=== PATIENT | female | born 1980 | race Caucasian/White ===

== ENCOUNTER → 2018-01-28 | Outpatient (CLI) | payer OTHER ==
--- NOTE | 2018-01-28 18:20 | XR ---
EXAMINATION TYPE: XR cervical spine comp DATE OF EXAM: 01/28/2018 COMPARISON: NONE HISTORY: Neck pain TECHNIQUE: 7 views FINDINGS: Cervical vertebra have fairly normal spacing and alignment. Posterior elements are intact. Atlantoaxial facet joint is normal. There are no cervical ribs. IMPRESSION: Negative cervical spine exam.
--- NOTE | 2018-01-28 18:46 | CT ---
EXAMINATION TYPE: CT abdomen pelvis wo con DATE OF EXAM: 01/28/2018 COMPARISON: 01/04/2011 HISTORY: c/o low back and pelvic pain X [address] DLP: 1297.0 mGycm Automated exposure control for dose reduction was used. TECHNIQUE: Helical acquisition of images was performed from the lung bases through the pelvis. FINDINGS: The lung bases are clear. There is no pleural effusion. Heart size is normal. Liver spleen pancreas gallbladder appear normal. Bile ducts are not dilated. There is no adrenal mass. Kidneys have normal size and contour. There is no hydronephrosis. There is a 3 mm calcification in the lower pole right kidney. There is no hydronephrosis. There is no retroper itoneal adenopathy. There is no ascites. Bladder distends smoothly. The uterus is anteverted. I see n o bony destructive process. There is no evidence of a pelvic mass. I see no intestinal wall thickenin g. There are no dilated loops. Appendix appears normal. Fecal pattern is normal. IMPRESSION: NONOBSTRUCTING SMALL RIGHT RENAL CALCULUS. NO SIGN OF ACUTE ABDOMEN AND PELVIS. CALCIFICATION APPEARS NEW COMPARED TO OLD EXAM.
== END | disposition home or self-care (01) ==
LOC: RADCTMAIN 17:40
PROVIDERS: ATTEND Internal Medicine
DX: N20.0 Calculus of kidney (principal); M54.2 Cervicalgia; R10.2 Pelvic and perineal pain
CPT/HCPCS: 72050; 74176

== ENCOUNTER → 2018-02-02 | Outpatient (CLI) | payer OTHER ==
--- NOTE | 2018-02-02 16:52 | XR ---
EXAMINATION TYPE: XR thoracic spine 3 views, XR lumbosacral spine min 5 views DATE OF EXAM: 02/02/2018 COMPARISON: NONE HISTORY: 37-year-old female thoracic and lumbar pain, lumbago FINDINGS: Thoracic spine: 12 rib-bearing thoracic vertebral bodies. All pedicles are visualized. Very minimal leftward curvatur e along the upper thoracic spine. Mild endplate spondylosis mid to lower thoracic spine. Vertebral ann-marie dy heights are preserved and alignment is maintained. Lumbar spine: Slight leftward truncal shift 5 lumbar type vertebral bodies. 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 No pars interarticularis defect. Mild facet arthropathy l ower lumbar spine. There is mild disc interspace narrowing in the upper lumbar spine. Vertebral body heights are preserved and alignment is maintained. IMPRESSION: 1. Thoracic spine: Mild endplate spondylosis mid to lower thoracic spine. No vertebral compression co llapse or malalignment. 2. Lumbar spine: Facet arthropathy lower lumbar spine. Mild degenerative disc interspace narrowing up per lumbar spine. No vertebral compression collapse or malalignment. 3. Leftward truncal shift and slight leftward curvature along the upper thoracic spine could be posit ional, due to muscle spasm, or secondary to a very subtle scoliosis.
== END | disposition home or self-care (01) ==
LOC: RADXRMAIN 15:53
PROVIDERS: ATTEND Internal Medicine
DX: M48.061 Spinal stenosis, lumbar region without neurogenic claudication (principal); M46.96 Unspecified inflammatory spondylopathy, lumbar region; M47.814 Spondylosis without myelopathy or radiculopathy, thoracic region
CPT/HCPCS: 72070; 72110

== ENCOUNTER → 2018-02-19 | Outpatient (CLI) | payer OTHER ==
--- NOTE | 2018-02-19 23:16 | MR ---
EXAMINATION TYPE: MR lumbar spine wo con DATE OF EXAM: 02/19/2018 COMPARISON: Lumbar spine x-ray February 02, 2018. CT abdomen and pelvis January 28, 2018. HISTORY: Low back pain per order. Pain for 3 to 4 months per patient. TECHNIQUE: Multiplanar, multisequence imaging of the lumbar spine is performed without IV contrast. FINDINGS: Motion artifact is noted making evaluation slightly suboptimal. Sagittal images of the lumb ar spine show vertebral body heights and alignment to appear satisfactory. There is disc desiccation L3-L4 level otherwise the intervertebral discs demonstrate normal heights and hydration. No suspiciou s posterior disc herniations are seen on sagittal images. The conus medullaris is normal in position and signal ending at inferior L1 level. The bone marrow signal intensity is within normal limits. N o significant spurring is seen. Axial images show mild multilevel facet degenerative changes in the mid to lower lumbar spine most pr ominent L5-S1 level but the spinal canal is preserved and the bilateral neural foramina are patent at all lumbar levels. No suspicious retroperitoneal findings are seen. IMPRESSION: Multilevel facet arthropathy most prominent mid to lower lumbar levels.
== END | disposition home or self-care (01) ==
LOC: RADMRIMAIN 14:30
PROVIDERS: ATTEND Internal Medicine
DX: M46.96 Unspecified inflammatory spondylopathy, lumbar region (principal)
CPT/HCPCS: 72148

== ENCOUNTER 2018-06-20 21:42 | Emergency (ER) | payer OTHER ==
[2018-06-20 22:20] VITALS: RESP 18
[2018-06-20] MEDS ORDERED: CIPROFLOXACIN-DEXAMETH 0.3-0.1% DROPS 7.5 ML BTL RIGHT EAR STA (22:31)
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
[2018-06-21 00:52] VITALS: BP 128/77; PULSE 96; TEMP 98
== END 2018-06-20 22:45 | disposition home or self-care (01) ==
LOC: EC 21:42
DX: H60.91 Unspecified otitis externa, right ear (principal); R68.84 Jaw pain; F32.9 Major depressive disorder, single episode, unspecified; F41.9 Anxiety disorder, unspecified; Z79.899 Other long term (current) drug therapy; Z88.2 Allergy status to sulfonamides; Z91.018 Allergy to other foods
CPT/HCPCS: 99282

== ENCOUNTER 2018-08-02 20:28 | Emergency (ER) | payer OTHER ==
[2018-08-02] MEDS ORDERED: ALBUTEROL NEBULIZED 2.5 MG/3 ML INHALATION STA (21:09)
--- NOTE | 2018-08-02 21:20 | ED ---
URI HPI - General Chief Complaint: Upper Respiratory Infection Stated Complaint: congestion Time Seen by Provider: 08/02/18 20:51 Source: patient Mode of arrival: ambulatory Limitations: no limitations - History of Present Illness MD Complaint: cough, sore throat, nasal congestion -: days(s) Severity: moderate Quality: burning Consistency: constant Improves With: nothing Worsens With: other Associated Symptoms: nasal congestion, sore throat, cough Treatments Prior to Arrival: none - Related Data Home Medications Medication Instructions Recorded Confirmed D-Methorphan/PE/Acetaminophen 1 cap PO Q6HR PRN 08/02/18 08/02/18 [Vicks Dayquil Liquicaps] Previous Rx's Medication Instructions Recorded Albuterol Inhaler [Ventolin Hfa 1 - 2 puff INHALATION Q6HR PRN #1 08/02/18 Inhaler] inhaler Azithromycin [Zithromax Z-pack] 250 mg PO DIRECTED #6 tab 08/02/18 Benzonatate [Tessalon Perles] 100 mg PO TID PRN #24 capsule 08/02/18 predniSONE 20 mg PO BID #8 tab 08/02/18 Allergies Allergy/AdvReac Type Severity Reaction Status Date / Time Sulfa (Sulfonamide Allergy Rash/Hives Verified 08/02/18 20:41 Antibiotics) BANANAS Allergy THROAT Uncoded 08/02/18 20:31 SWELLS COCONUT Allergy THROAT Uncoded 08/02/18 20:31 SWELLS Review of Systems ROS Statement: Those systems with pertinent positive or pertinent negative responses have been documented in the HPI. ROS Other: All systems not noted in ROS Statement are negative. Constitutional: Reports: fever. Denies: chills ENT: Reports: throat pain, congestion Respiratory: Reports: cough. Denies: dyspnea, hemoptysis Cardiovascular: Reports: chest pain (Bilateral rib pain during coughing). Denies: palpitations, edema, syncope Gastrointestinal: Denies: abdominal pain, vomiting, diarrhea Musculoskeletal: Denies: back pain Skin: Denies: rash Neurological: Denies: headache, weakness, numbness, paresthesias Past Medical History Past Medical History: Pneumonia, Sleep Apnea/CPAP/BIPAP Additional Past Medical History / Comment(s): back pain, numbness & tingling, not using c-pap History of Any Multi-Drug Resistant Organisms: None Reported Past Surgical History: Orthopedic Surgery, Tubal Ligation Additional Past Surgical History / Comment(s): carpul tunnel surgery Past Anesthesia/Blood Transfusion Reactions: No Reported Reaction Past Psychological History: Anxiety, Depression Smoking Status: Never smoker Past Alcohol Use History: Occasional Past Drug Use History: None Reported General Exam Limitations: no limitations General appearance: alert, in no apparent distress, obese Head exam: Present: atraumatic, normocephalic Eye exam: Present: normal appearance. Absent: scleral icterus, conjunctival injection ENT exam: Present: normal oropharynx (Trace inflammation of the oropharynx. The uvula is midline with no edema.) Neck exam: Present: normal inspection, full ROM, lymphadenopathy. Absent: meningismus Respiratory exam: Present: wheezes. Absent: respiratory distress, rales, rhonchi, stridor Cardiovascular Exam: Present: regular rate, normal rhythm, normal heart sounds. Absent: systolic murmur, diastolic murmur, rubs, gallop GI/Abdominal exam: Present: soft. Absent: tenderness, guarding, rebound Extremities exam: Present: normal inspection Back exam: Present: normal inspection. Absent: CVA tenderness (R), CVA tenderness (L) Neurological exam: Present: alert Skin exam: Present: warm, dry, intact, normal color. Absent: rash Course Vital Signs 08/02/18 08/02/18 08/02/18 20:30 21:44 21:51 Temperature 98.6 F Pulse Rate 115 H 110 H 110 H Respiratory 18 Rate Blood Pressure 156/87 O2 Sat by Pulse 95 Oximetry Disposition Clinical Impression: Bronchitis Disposition: HOME SELF-CARE Condition: Good Instructions: Acute Bronchitis (ED) Prescriptions: Albuterol Inhaler [Ventolin Hfa Inhaler] 1 - 2 puff INHALATION Q6HR PRN #1 inhaler PRN Reason: Wheezing Azithromycin [Zithromax Z-pack] 250 mg PO DIRECTED #6 tab Benzonatate [Tessalon Perles] 100 mg PO TID PRN #24 capsule PRN Reason: Cough predniSONE 20 mg PO BID #8 tab Is patient prescribed a controlled substance at d/c from ED?: No Referrals: Violet Stevenson MD [Primary Care Provider] - 1-2 days
--- NOTE | 2018-08-02 22:22 | XR ---
EXAMINATION TYPE: XR chest 2V DATE OF EXAM: 08/02/2018 COMPARISON: 08/28/2017 HISTORY: Cough and congestion TECHNIQUE: Frontal and lateral views of the chest are obtained. FINDINGS: Heart and mediastinum are normal. There is some linear density in the lingula consistent w ith subsegmental atelectasis. Costophrenic angles are clear. There are no hilar masses. Bony thorax i s intact. IMPRESSION: New subsegmental atelectasis compared to old exam. Normal heart.
[2018-08-02 22:36] VITALS: BP 123/87; PULSE 111; RESP 20; TEMP 99
== END 2018-08-02 22:43 | disposition home or self-care (01) ==
LOC: EC 20:28
DX: J40 Bronchitis, not specified as acute or chronic (principal); G47.30 Sleep apnea, unspecified; Z91.018 Allergy to other foods; Z88.2 Allergy status to sulfonamides; Z87.01 Personal history of pneumonia (recurrent)
CPT/HCPCS: 71046; 94640; 99283

== ENCOUNTER → 2018-08-15 | Outpatient (CLI) | payer OTHER ==
[2018-08-15 09:24] LABS: Basophils # (A) 0.1 k/uL (0-0.2); Basophils % (A) 1 %; Eosinophils # (A) 0.5 k/uL (0-0.7); Eosinophils % (A) 5 %; HCT 41.8 % (34.0-46.0); HGB 13.7 gm/dL (11.4-16.0); Lymphocytes # (A) 2.7 k/uL (1.0-4.8); Lymphocytes % (A) 29 %; MCH 28.4 pg (25.0-35.0); MCHC 32.8 g/dL (31.0-37.0); MCV 86.7 fL (80.0-100.0); Mean Platelet Volume 9.3; Monocytes # (A) 0.4 k/uL (0-1.0); Monocytes % (A) 4 %; Neutrophils # (A) 5.7 k/uL (1.3-7.7); Neutrophils % (A) 60 %; Platelet Count 204 k/uL (150-450); RBC 4.82 m/uL (3.80-5.40); RDW 13.1 % (11.5-15.5); WBC 9.4 k/uL (3.8-10.6)
[2018-08-15 09:39] LABS: ALT 32 U/L (9-52); AST 23 U/L (14-36); Albumin 3.9 g/dL (3.5-5.0); Alkaline Phosphatase 91 U/L (38-126); Anion Gap 11 mmol/L; Blood Urea Nitrogen 12 mg/dL (7-17); Calcium 9.3 mg/dL (8.4-10.2); Carbon Dioxide 23 mmol/L (22-30); Chloride 105 mmol/L (98-107); Glucose 218 mg/dL (74-99); Potassium 4.5 mmol/L (3.5-5.1); Sodium 139 mmol/L (137-145); Total Bilirubin 0.3 mg/dL (0.2-1.3)
[2018-08-15 09:56] LABS: T4, Free (Free Thyroxine) 0.92 ng/dL (0.78-2.19)
[2018-08-15 17:34] LABS: Iron Saturation 20.78 (12.00-45.00)
[2018-08-15 17:54] LABS: Vitamin D 25 Hydroxy 14.3 ng/mL (30.0-100.0)
== END ==
LOC: LABWHC1 08:56
PROVIDERS: ATTEND Nurse Practitioner Acute Care
DX: E55.9 Vitamin D deficiency, unspecified (principal); D64.9 Anemia, unspecified; M62.838 Other muscle spasm; R53.83 Other fatigue
CPT/HCPCS: 36415; 80053; 82306; 82607; 83540; 83550; 84207; 84439; 84443; 84481; 85025; 86038

== ENCOUNTER 2019-04-13 18:16 | Emergency (ER) | payer BC, OTHER ==
[2019-04-13 18:20] VITALS: TEMP 98.4
[2019-04-13] MEDS ORDERED: IBUPROFEN 600 MG TAB PO STA (19:23)
--- NOTE | 2019-04-13 19:24 | ED ---
General Adult HPI - General Chief complaint: Extremity Problem,Nontraumatic Stated complaint: Knee pain Time Seen by Provider: 04/13/19 18:58 Source: patient, RN notes reviewed Mode of arrival: ambulatory Limitations: no limitations - History of Present Illness Initial comments: 38-year-old female presents to the emergency department for a chief complaint of right knee pain. States she has had right knee pain for the past 3 days. States the pain shoots up to her hip and down to her foot. Denies any calf pain. Denies any injuries. No fevers or chills. States it does hurt to bend it. States she is able to ambulate but it is somewhat painful. States she has a history of back pain and neuropathy but has not had any issues. Patient did try Aleve last night which only helped minimally.Patient has no other complaints at this time including shortness of breath, chest pain, abdominal pain, nausea or vomiting, headache, or visual changes. - Related Data Home Medications Medication Instructions Recorded Confirmed D-Methorphan/PE/Acetaminophen 1 cap PO Q6HR PRN 08/02/18 08/02/18 [Vicks Dayquil Liquicaps] Previous Rx's Medication Instructions Recorded Albuterol Inhaler [Ventolin Hfa 1 - 2 puff INHALATION Q6HR PRN #1 08/02/18 Inhaler] inhaler Azithromycin [Zithromax Z-pack] 250 mg PO DIRECTED #6 tab 08/02/18 Benzonatate [Tessalon Perles] 100 mg PO TID PRN #24 capsule 08/02/18 predniSONE 20 mg PO BID #8 tab 08/02/18 Allergies Allergy/AdvReac Type Severity Reaction Status Date / Time Sulfa (Sulfonamide Allergy Rash/Hives Verified 04/13/19 18:20 Antibiotics) BANANAS Allergy THROAT Uncoded 04/13/19 18:20 SWELLS COCONUT Allergy THROAT Uncoded 04/13/19 18:20 MIT[place]HEL Review of Systems ROS Statement: Those systems with pertinent positive or pertinent negative responses have been documented in the HPI. ROS Other: All systems not noted in ROS Statement are negative. Past Medical History Past Medical History: Pneumonia, Sleep Apnea/CPAP/BIPAP Additional Past Medical History / Comment(s): back pain, numbness & tingling, not using c-pap History of Any Multi-Drug Resistant Organisms: None Reported Past Surgical History: Orthopedic Surgery, Tubal Ligation Additional Past Surgical History / Comment(s): carpul tunnel surgery Past Anesthesia/Blood Transfusion Reactions: No Reported Reaction Past Psychological History: Anxiety, Depression Smoking Status: Never smoker Past Alcohol Use History: Occasional Past Drug Use History: None Reported General Exam Limitations: no limitations General appearance: alert, in no apparent distress Head exam: Present: atraumatic, normocephalic, normal inspection Eye exam: Present: normal appearance, PERRL, EOMI. Absent: scleral icterus, conjunctival injection, periorbital swelling ENT exam: Present: normal exam, mucous membranes moist Neck exam: Present: normal inspection, full ROM. Absent: tenderness, meningismus Respiratory exam: Present: normal lung sounds bilaterally. Absent: respiratory distress, wheezes, rales, rhonchi, stridor Cardiovascular Exam: Present: regular rate, normal rhythm, normal heart sounds. Absent: systolic murmur, diastolic murmur, rubs, gallop, clicks Extremities exam: Present: tenderness (Minimal anterior knee tenderness, no posterior knee tenderness or calf tenderness.), normal capillary refill (Capillary refill less than 2 seconds, DP pulse 2+ in the right lower extremity and equal bilaterally.), other (Sensation intact in the right lower extremity.). Absent: full ROM (Patient has about 90 flexion, full extension.), pedal edema, joint swelling (No significant or appreciable edema or erythema noted of the right knee, no evidence of infection.), calf tenderness (Negative Homans sign.) Course Vital Signs 04/13/19 18:18 Temperature 98.4 F Pulse Rate 94 Respiratory 18 Rate Blood Pressure 128/82 O2 Sat by Pulse 95 Oximetry Medical Decision Making - Medical Decision Making 38-year-old obese female presents for right knee pain 3 days. Denies injury. Patient is able to flex knee to 90 her no erythema or edema. No evidence for infection. Patient is ambulatory on the knee without difficulty. Neurovascular status is intact.Ultrasound of the right leg shows no evidence of DVT. X-ray shows a small joint effusion, no fracture. At this time I do not see any emergent causes of knee pain. Could be arthritic in nature. Patient given Jeremias wrap. Recommended follow-up with orthopedics. Recommended returning here if she has any worsening symptoms such as increased pain, fever, or redness of the knee. Disposition Clinical Impression: Knee pain, right, Joint effusion Disposition: HOME SELF-CARE Condition: Good Instructions (If sedation given, give patient instructions): Knee Pain (ED) Additional Instructions: Please take Motrin and Tylenol for pain. Please use Jeremias wrap while awake. Please follow-up with orthopedics in one to 2 days. Return if you have any worsening symptoms or develop any fevers. Is patient prescribed a controlled substance at d/c from ED?: No Referrals: Violet Stevenson MD [Primary Care Provider] - 1-2 days Efren Mike DO [Medical Doctor] - 1-2 days Time of Disposition: 20:59
--- NOTE | 2019-04-13 19:47 | XR ---
EXAMINATION TYPE: XR knee complete RT DATE OF EXAM: 04/13/2019 COMPARISON: NONE HISTORY: Knee pain TECHNIQUE: 3 views FINDINGS: There is small knee joint effusion. I see no fracture nor dislocation. Joint spaces are pro rly normal. IMPRESSION: Small joint effusion. No fracture.
--- NOTE | 2019-04-13 20:02 | US ---
EXAMINATION TYPE: US venous doppler duplex LE RT DATE OF EXAM: 04/13/2019 7:57 PM COMPARISON: NONE CLINICAL HISTORY: Pain. Right leg pain SIDE PERFORMED: Right TECHNIQUE: The lower extremity deep venous system is examined utilizing real time linear array sonog nathalie with graded compression, doppler sonography and color-flow sonography. VESSELS IMAGED: External Iliac Vein (EIV) Common Femoral Vein Deep Femoral Vein Greater Saphenous Vein * Femoral Vein Popliteal Vein Small Saphenous Vein * Proximal Calf Veins (* superficial vessels) Right Leg: Negative for DVT No evidence of DVT right leg. IMPRESSION: No evidence of deep venous thrombosis in the right leg.
[2019-04-13 21:08] VITALS: BP 148/98; PULSE 70; RESP 16
== END 2019-04-13 21:07 | disposition home or self-care (01) ==
LOC: EC 18:16
DX: M25.461 Effusion, right knee (principal); Z88.2 Allergy status to sulfonamides; Z91.018 Allergy to other foods
CPT/HCPCS: 99284

== ENCOUNTER 2019-08-07 20:26 | Emergency (ER) | payer BC, OTHER ==
[2019-08-07 20:31] VITALS: TEMP 98.1
[2019-08-07] MEDS ORDERED: DIPH,PERTUS(ACELL)TETVAC-LF 0.5 ML VIAL IM ONE (20:48)
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
[2019-08-07] MEDS ORDERED: AMOXIC-POT CLAV 875MG STARTER 2 EACH TABLET PO STA (21:31)
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
[2019-08-07 21:37] VITALS: BP 154/90; PULSE 80; RESP 18
== END 2019-08-07 21:38 | disposition home or self-care (01) ==
LOC: EC 20:26
DX: S01.21XA Laceration without foreign body of nose, initial encounter (principal); Z88.2 Allergy status to sulfonamides; Z91.018 Allergy to other foods; Z23 Encounter for immunization; Y04.0XXA Assault by unarmed brawl or fight, initial encounter; Y92.009 Unspecified place in unspecified non-institutional (private) residence as the place of occurrence of the external cause; Z53.20 Procedure and treatment not carried out because of patient's decision for unspecified reasons
CPT/HCPCS: 70160; 90471; 90715; 99284

== ENCOUNTER → 2019-08-16 | Outpatient (CLI) | payer BC, OTHER ==
[2019-08-16 17:57] LABS: INR 0.9 (<1.2); Partial Thromboplastin Time 24.6 sec (22.0-30.0); Prothrombin Time 9.8 sec (9.0-12.0)
[2019-08-16 18:05] LABS: HCT 44.7 % (34.0-46.0); HGB 15.3 gm/dL (11.4-16.0); MCH 30.1 pg (25.0-35.0); MCHC 34.2 g/dL (31.0-37.0); MCV 88.2 fL (80.0-100.0); Mean Platelet Volume 8.1; Platelet Count 291 k/uL (150-450); RBC 5.07 m/uL (3.80-5.40); RDW 12.9 % (11.5-15.5); WBC 10.2 k/uL (3.8-10.6)
[2019-08-17 00:25] LABS: Iron Saturation 25.96 (12.00-45.00)
[2019-08-17 00:33] LABS: Vitamin D 25 Hydroxy 22.4 ng/mL (30.0-100.0)
[2019-08-17 00:34] LABS: Ferritin 77.8 ng/mL (10.0-291.0)
[2019-08-17 01:04] LABS: African American GFR (CKD) 107.6 (60.0-200.0); Albumin 4.8 g/dL (3.80-4.90); Albumin/Globulin Ratio 1.92 (1.60-3.17); Anion Gap 9.7 mmol/L (4.00-12.00); BUN/Creat Ratio 16.25 Ratio (12.00-20.00); Calcium 10.1 mg/dL (8.7-10.3); Carbon Dioxide 25.3 mmol/L (21.6-31.8); Chol/HDL Ratio 3.84; Globulin 2.5 g/dL (1.6-3.3); LDL Cholesterol,Calculated 166.6 mg/dL (0.0-131.0); Magnesium 1.9 mg/dL (1.5-2.4); Phosphorus 3.9 mg/dL (2.4-5.1); Potassium 4.2 mmol/L (3.5-5.5); Total Bilirubin 0.6 mg/dL (0.3-1.2); Total Protein 7.3 g/dL (6.2-8.2); VLDL Calculation 29.4 mg/dL (5.00-40.00)
[2019-08-17 01:25] LABS: Folate, Serum 14.4 ng/mL
[2019-08-17 13:04] LABS: Zinc, Serum 82 ug/dL (60-130)
[2019-08-17 15:48] LABS: Hemoglobin A1C 6.6 % (4.0-6.0)
[2019-08-18 07:04] LABS: Vitamin A 41 ug/dL (38-106)
[2019-08-18 12:41] LABS: Vit B1(Thiamine) 80 ug/L (38-122)
== END | disposition home or self-care (01) ==
LOC: LABWHC1 17:00
PROVIDERS: ATTEND Surgery Plastic and Reconstructive Surgery
DX: E21.1 Secondary hyperparathyroidism, not elsewhere classified (principal); D50.9 Iron deficiency anemia, unspecified; K90.9 Intestinal malabsorption, unspecified; E55.9 Vitamin D deficiency, unspecified; K74.1 Hepatic sclerosis; N19 Unspecified kidney failure; K50.90 Crohn's disease, unspecified, without complications
CPT/HCPCS: 36415; 80053; 80061; 82306; 82525; 82607; 82728; 82746; 83036; 83540; 83550; 83735; 83970; 84100; 84134; 84255; 84425; 84443; 84590; 84630; 85027; 85610; 85730; 93005

== ENCOUNTER → 2019-08-16 | Outpatient (CLI) | payer BC, OTHER ==
[2019-08-16 16:28] VITALS: BP 119/79; PULSE 101; TEMP 98.5; BMI 45.6
--- NOTE | 2019-08-16 16:51 | P.HPBAR ---
Bariatric H&P - History & Physicial H&P Date: 08/16/19 History & Physicial: Visit/CC: bariatric consultation Patient initial contact: Initial weight: 122.334 kg Initial weight in pounds: 269.70 Height: 5 ft 4.5 in Initial BMI: 45.6 Last weight: Current weight: 122.334 kg Current weight in pounds: 269.70 Current BMI: 45.6 [place] body weight (based on NIH guidelines): 55.565 kg Excess body weight loss: 0.0% The patient is a 38 year-old F who presents for Bariatric Assessment. Gastric bypass options. Highest weight is 310 pounds. She tried adipex, weight watches, going to gym, card restriction. Adipex weight loss of 40 pounds with weight regain. Aunts have trouble with weight. No family members with weight loss. She has friends with gastric bypass 300 to 130 pounds for 6 years. No Crohns disease or ulcerative colitis. No DVTs of PE. No MS or lupus. No stomach or esophageal cancer. Has GERD. She has gallbladder. No family history of gallbladder problems. She has lower back pain and sees back specialist. She has hip pain, knee left pain. No ankle pain. She has feet pain. She has new right new pain. She snores. She had sleep test that was inadequate and uses CPAP. Diabetes in grandfather including parents. Had tubes [facility] [place] Past Medical History Past Medical History: Pneumonia, Sleep Apnea/CPAP/BIPAP Additional Past Medical History / Comment(s): back pain, numbness & tingling (bilateral legs with cold temperatures), not using c-pap though she was dx with sleep apnea (??), prediabetes, History of Any Multi-Drug Resistant Organisms: None Reported Past Surgical History: Orthopedic Surgery, Tubal Ligation Additional Past Surgical History / Comment(s): bilateral carpul tunnel surgery, left knee arthroscopic + repair of torn ligaments, Dec 2018: Nerve ablation lumbar spine (Dr. Dumont; in office procedure) Past Anesthesia/Blood Transfusion Reactions: No Reported Reaction Additional Past Anesthesia/Blood Transfusion Reaction / Comm: No blood transfusion to date Past Psychological History: Anxiety, Depression Additional Psychological History / Comment(s): 08/16/19: Takes Abilify 5mg daily, Cymbalta 60 mg BID, and Trazadone 100 mg at HS Smoking Status: Never smoker Past Alcohol Use History: Occasional Additional Past Alcohol Use History / Comment(s): "maybe once/month may have 2 beers" Past Drug Use History: None Reported Additional Drug Use History / Comment(s): 2nd hand smoke exposure when visiting parents - Past Family History Mother Family Medical History: CVA/TIA, Hyperlipidemia, Hypertension Father Family Medical History: Hyperlipidemia, Hypertension Additional Family Medical History / Comment(s): at age 60 from alcoholism (organ failure) Brother(s) Family Medical History: No Reported History Surgical - Exam Vital Signs Temp Pulse BP 98.5 F 101 H 119/79 08/16/19 16:02 08/16/19 16:02 08/16/19 16:02 Bariatric Checklist Checklist: Plan: Checklist: EGD: 1. Hiatal hernia: 2. H. Pylori: HgbA1c: Vitamin D: Smoking: Never smoker Primary care physician referral: Jaqueline Joseph NP ([facility]: vickie Linares MD) Psychiatry clearance: Cardiology clearance: Sleep study: Diet journal: VTE risk score: VTE risk level: Rehab needs at discharge:
== END ==
LOC: BARWHC3 15:32
PROVIDERS: ATTEND Surgery Plastic and Reconstructive Surgery
DX: K21.9 Gastro-esophageal reflux disease without esophagitis (principal); M54.5 Low back pain; M25.559 Pain in unspecified hip; M25.569 Pain in unspecified knee; M79.673 Pain in unspecified foot
CPT/HCPCS: 99211

== ENCOUNTER → 2019-08-31 | Outpatient (CLI) | payer BC, OTHER | END | disposition home or self-care (01) | LOC: LABPAT 13:17 | PROVIDERS: ATTEND Surgery Plastic and Reconstructive Surgery | DX: Z01.812 Encounter for preprocedural laboratory examination (principal) | CPT/HCPCS: 93005 ==

== ENCOUNTER 2019-09-18 13:38 | Day surgery (SDC) | payer BC, OTHER ==
[2019-09-15 10:38] VITALS: BMI 45.4
--- NOTE | 2019-09-18 05:46 | P.GSHP ---
History of Present Illness H&P Date: 09/18/19 CHIEF COMPLAINT: GERD HISTORY OF PRESENT ILLNESS: The patient is a 38-year-old male who presents reports gastroesophageal reflux disease. Upper endoscopy was offered for further evaluation and management. PAST MEDICAL HISTORY: Please see list. PAST SURGICAL HISTORY: Please see list. MEDICATIONS: Please see list. ALLERGIES: Please see list. SOCIAL HISTORY: No illicit drug use FAMILY HISTORY: No reports of Crohn disease or ulcerative colitis. REVIEW OF ORGAN SYSTEMS: CONSTITUTIONAL: No reports of fevers or chills. GI: Denies any blood in stools or constipation. PHYSICAL EXAM: VITAL SIGNS: Stable GENERAL: Well-developed and pleasant in no acute distress. HEENT: No scleral icterus. Extraocular movements grossly intact. Moist buccal mucosa. NECK: Supple without lymphadenopathy. CHEST: Unlabored respirations. Equal bilateral excursions. CARDIOVASCULAR: Regular rate and rhythm. Distal 2+ pulses. ABDOMEN: Soft, nondistended. MUSCULOSKELETAL: No clubbing, cyanosis, or edema. ASSESSMENT: 1. Gastroesophageal reflux disease PLAN: 1. Recommend proceeding with an upper endoscopy Past Medical History Past Medical History: Diabetes Mellitus, Pneumonia, Sleep Apnea/CPAP/BIPAP Additional Past Medical History / Comment(s): back pain, numbness & tingling (bilateral legs with cold temperatures), not using c-pap though she was dx with sleep apnea (??), hx. of ulcers History of Any Multi-Drug Resistant Organisms: None Reported Past Surgical History: Orthopedic Surgery, Tubal Ligation Additional Past Surgical History / Comment(s): bilateral carpal tunnel surgery, left knee arthroscopic + repair of torn ligaments, Nerve ablation lumbar spine (Dr. Garrison in office procedure) Past Anesthesia/Blood Transfusion Reactions: No Reported Reaction Additional Past Anesthesia/Blood Transfusion Reaction / Comment(s): No blood transfusion to date Smoking Status: Never smoker - Past Family History Mother Family Medical History: CVA/TIA, Hyperlipidemia, Hypertension Father Family Medical History: Hyperlipidemia, Hypertension Additional Family Medical History / Comment(s): at age 60 from alcoholism (organ failure) Brother(s) Family Medical History: No Reported History Medications and Allergies Home Medications Medication Instructions Recorded Confirmed Type ARIPiprazole [Abilify] 5 mg PO DAILY 08/16/19 09/15/19 History DULoxetine HCL [Cymbalta] 60 mg PO BID 08/16/19 09/15/19 History traZODone HCL [TraZODone HCl] 100 mg PO HS 08/16/19 09/15/19 History Gabapentin [Neurontin] 300 mg PO DAILY 09/15/19 09/15/19 History metFORMIN HCL [Glucophage] 500 mg PO AC-SUPPER 09/15/19 09/15/19 History Allergies Allergy/AdvReac Type Severity Reaction Status Date / Time Sulfa (Sulfonamide Allergy Rash/Hives Verified 09/15/19 10:20 Antibiotics) BANANAS Allergy THROAT Uncoded 09/15/19 10:20 SWELLS COCONUT Allergy THROAT Uncoded 09/15/19 10:20 SWELLS
[~2019-09-18 13:38] MED LIST: LACTATED RINGERS 1,000 ML IV SCH; LIDOCAINE 1% 20 ML VIAL (10MG/ML) FOR IV START INTRADERMA PRN
[2019-09-18 14:06] VITALS: TEMP 97.3
[2019-09-18 14:10] LABS: Glucose,Whole Blood 136 mg/dL (75-99)
[2019-09-18] MEDS ORDERED: LIDOCAINE 1% INJ 10MG/ML (20 ML MDV) ONE (14:13)
[2019-09-18] MEDS ORDERED: PROPOFOL 10 MG/ML 20 ML VIAL IV ONE (14:13)
--- NOTE | 2019-09-18 14:24 | P.PCN ---
Date of Procedure: 09/18/19 Description of Procedure: PREOPERATIVE DIAGNOSIS: Gastroesophageal reflux disease. Morbid obesity. POSTOPERATIVE DIAGNOSIS: Gastritis. Gastroesophageal reflux disease. Duodenitis Gastric polyp Morbid obesity. OPERATION: Esophagogastroduodenoscopy with biopsies along antrum and duodenum SURGEON: Ladi Hare MD ANESTHESIA: MAC. INDICATIONS: The patient is a 38-year-old female who presents with a history of reflux disease. Benefits and risks of the procedure were described. Informed consent wa s obtained. DESCRIPTION: The patient was brought into the endoscopy suite and laid in the left lateral decubitus position. An Olympus gastroscope was passed along the posterior oropharynx down to the distal esophagus where the squamocolumnar junction was encountered at 39 cm from the incisors. The stomach was entered and no bile reflux was found. Additional findings are listed below. Biopsies with cold forceps were obtained of the antrum. The first through third portion of the duodenum was examined. Retroflexion of the scope confirmed Hill grade 2 lower esophageal valve. The squamocolumnar junction demonstrated LA grade A erosive esophagitis. The stomach was desufflated. The patient tolerated the procedure. FINDINGS: Squamocolumnar junction 39 cm from the incisors. Diaphragmatic hiatus at 39 cm. Hill grade 2 lower esophageal valve. LA grade A erosive esophagitis. Active duodenitis. Chronic gastritis Few gastric polyps, benign RECOMMENDATIONS: Upper endoscopy as needed. Plan - Discharge Summary Discharge Rx Participant: No New Discharge Prescriptions: New Omeprazole 40 mg PO DAILY #30 capsule. No Action DULoxetine HCL [Cymbalta] 60 mg PO BID ARIPiprazole [Abilify] 5 mg PO DAILY traZODone HCL [TraZODone HCl] 100 mg PO HS metFORMIN HCL [Glucophage] 500 mg PO AC-SUPPER Gabapentin [Neurontin] 300 mg PO DAILY Discharge Medication List ARIPiprazole [Abilify] 5 mg PO DAILY 08/16/19 [History] DULoxetine HCL [Cymbalta] 60 mg PO BID 08/16/19 [History] traZODone HCL [TraZODone HCl] 100 mg PO HS 08/16/19 [History] Gabapentin [Neurontin] 300 mg PO DAILY 09/15/19 [History] metFORMIN HCL [Glucophage] 500 mg PO AC-SUPPER 09/15/19 [History] Omeprazole 40 mg PO DAILY #30 capsule. 09/18/19 [Rx] [place] Patient Instructions/Handouts: Gastritis (ED), Duodenitis (ED) Discharge Disposition: HOME SELF-CARE
[2019-09-18 14:41] VITALS: BP 121/73; PULSE 88; RESP 20
== END 2019-09-18 15:12 | disposition home or self-care (01) ==
LOC: ORWHC2ENDO 13:38
PROVIDERS: ATTEND Surgery Plastic and Reconstructive Surgery
DX: K29.50 Unspecified chronic gastritis without bleeding (principal); K29.80 Duodenitis without bleeding; K31.7 Polyp of stomach and duodenum; K21.0 Gastro-esophageal reflux disease with esophagitis; K22.10 Ulcer of esophagus without bleeding; E11.9 Type 2 diabetes mellitus without complications; G47.33 Obstructive sleep apnea (adult) (pediatric); E66.01 Morbid (severe) obesity due to excess calories; Z87.01 Personal history of pneumonia (recurrent); Z79.84 Long term (current) use of oral hypoglycemic drugs; Z79.899 Other long term (current) drug therapy; Z88.2 Allergy status to sulfonamides; Z91.018 Allergy to other foods; Z98.51 Tubal ligation status; Z98.890 Other specified postprocedural states; Z99.89 Dependence on other enabling machines and devices; Z68.42 Body mass index [BMI] 45.0-49.9, adult; Z82.49 Family history of ischemic heart disease and other diseases of the circulatory system
CPT/HCPCS: 88305; 43239; J2001; J2704

== ENCOUNTER → 2019-11-29 | Outpatient (CLI) | payer BC, OTHER ==
[2019-11-29 16:07] VITALS: BP 135/86; PULSE 92; RESP 16; TEMP 97.9; BMI 45.9
--- NOTE | 2019-11-29 16:51 | P.PN ---
Subjective Progress Note Date: 11/29/19 DATE OF CONSULTATION: 11/29/2019 CHIEF COMPLAINT: Morbid obesity HISTORY OF PRESENT ILLNESS: Johanna Soriano is a pleasant 38-year-old female who is looking into the gastric bypass. She has gastroesophageal reflux disease. She was started on Omeprazole and notices improvement of her symptoms. She is cu rrently on medical supervised weight loss including exercising. At her height of 5 foot 4.5, her ideal body weight is 140 pounds Her highest weight was 310 pounds, BMI 52.5. Her present weight is 271 pounds from 269 pounds, 3 months ago. She has gained 2 pounds in 3 months. She is 127 pounds overweight. Her current body mass index is 46.0. PAST MEDICAL HISTORY: 1. Morbid obesity due to excess calories, BMI 52.5 2. Depression. 3. Obstructive sleep apnea. 4. Osteoarthritis. 5. Hypertension. 6. Metromenorrhagia. 7. Past history of pneumonia 8. Gastroesophageal reflux disease. 9. Degenerative joint disease, lower back. PAST SURGICAL HISTORY: 1. Left knee surgery for torn ligament. 2. Bilateral carpal tunnel release. 3. Sleep study. 4. Lumbar nerve ablation MEDICATIONS: 1. Adipex. 2. Cymbalta. 3. Abilify. ALLERGIES: 1. SULFA. 2. BANANA. 3. COCONUTS. She denies any latex allergies. SOCIAL HISTORY: Lifelong nontobacco user. FAMILY HISTORY: Pertinent for breast cancer. Denies any gastrointestinal malignancies or DVT or coagulopathy. Denies any food allergies. She has history of morbid obesity in her family. REVIEW OF SYSTEMS: CONSTITUTIONAL: At her height of 5 foot 4.5, her ideal body weight is 140 pounds Her highest weight was 310 pounds, BMI 52.5. Her present weight is 271 pounds from 269 pounds, 3 months ago. HEENT: Denies any troubles with vision or hearing. ENDOCRINE: Denies any hypothyroidism or diabetes. CARDIOVASCULAR: No reports of chest pain or palpitations. RESPIRATORY: History of bronchitis. Has obstructive sleep apnea. History of pneumonia GASTROINTESTINAL: She denies any problems with diarrhea, constipation, bright red blood per rectum. Has gastroesophageal reflux disease. GENITOURINARY: Has heave frequent menses. Had tubal ligation. MUSCULOSKELETAL: Has back pain including numbness and tingling of the toes and feet. PSYCH: Has history of anxiety and depression including mental illness for which she is on chronic mood stabilizers. HEMATOLOGIC: No DVTs or pulmonary embolisms. SKIN: Has panniculitis. Has rash. PHYSICAL EXAM: VITAL SIGNS: 5 feet 4.5 inches, 271 pounds. BMI 46.0 Vital Signs Temp 97.9 F 11/29/19 16:05 Pulse 92 11/29/19 16:05 Resp 16 11/29/19 16:05 BP 135/86 11/29/19 16:05 Pulse Ox GENERAL: Well-developed in no acute distress. HEENT: No scleral icterus. Extraocular movements grossly intact. Hears conversational speech. No nasal drainage. NECK: Supple without lymphadenopathy. CHEST: Nonlabored respirations with equal bilateral excursions. CARDIOVASCULAR: Regular rate and rhythm. Distal 2+ pulses. ABDOMEN: Obese, soft, nontender, nondistended. MUSCULOSKELETAL: No clubbing, cyanosis. NEURO: No focal or lateralizing signs. Cranial nerves 2 through 12 grossly within normal limits. PSYCH: Appropriate affect. Alert and oriented to person, place and time. SKIN: Good skin turgor. Well perfused. EKG: Sinus tachycardia, borderline LABS: Hgb A1c 6.6, Cholesterol elevated 265, Vitamin D is low, PTH is elevated MEDICAL REPORT: EGD FINDINGS: Squamocolumnar junction 39 cm from the incisors. Diaphragmatic hiatus at 39 cm. Hill grade 2 lower esophageal valve. LA grade A erosive esophagitis. Active duodenitis. Chronic gastritis Few gastric polyps, benign Final Pathologic Diagnosis A. GASTRIC ANTRUM, BIOPSIES: Essentially normal gastric mucosa. Helicobacter organisms are not identified on routine H+E stained sections. B. DUODENUM, BIOPSIES: Benign enteric mucosa with intact villous architecture. ASSESSMENT: 1. Morbid obesity due to excess calories, BMI 53.3 to 46.0 2. Depression. 3. Obstructive sleep apnea. 4. Osteoarthritis. 5. Hypertension. 6. Metromenorrhagia. 7. Past history of pneumonia 8. Gastroesophageal reflux disease. 9. Degenerative joint disease, lower back. 10. Vitamin D deficiency 11. Gastric polyps 12. Diabetes type 2, new diagnosis 13. Vitamin D deficiency 14. Hyperlipidemia 15. Secondary hyperparathyroidism PLAN: 1. Recommend medical supervised weight loss to January 2020 2. At this time, psych consult is pending per insurance guidelines 3. She is pending PCP letter 4. For vitamin D deficiency, Vitamin D is prescribed 5. She is looking gastric bypass at this time. 6. Blood work shows new diagnosis of diabetes. May need new pharmacological treatment. 7. Vitamin D 40849 units weekly advised. 8. Patient presents with new elevated risks with additional co-morbidities 9. Cardiology assessment advised. Objective - Vital Signs Vital signs: Vital Signs Temp 97.9 F 11/29/19 16:05 Pulse 92 11/29/19 16:05 Resp 16 11/29/19 16:05 BP 135/86 11/29/19 16:05 Pulse Ox Intake & Output 11/28/19 11/29/19 11/29/19 18:59 06:59 18:59 Weight 123.377 kg
== END | disposition home or self-care (01) ==
LOC: BARWHC3 14:57
PROVIDERS: ATTEND Surgery Plastic and Reconstructive Surgery
DX: E66.01 Morbid (severe) obesity due to excess calories (principal); F32.9 Major depressive disorder, single episode, unspecified; G47.33 Obstructive sleep apnea (adult) (pediatric); I10 Essential (primary) hypertension; K21.9 Gastro-esophageal reflux disease without esophagitis; M51.36 Other intervertebral disc degeneration, lumbar region; M19.90 Unspecified osteoarthritis, unspecified site; N92.1 Excessive and frequent menstruation with irregular cycle; Z87.01 Personal history of pneumonia (recurrent); Z88.2 Allergy status to sulfonamides; Z91.018 Allergy to other foods; Z79.899 Other long term (current) drug therapy
CPT/HCPCS: 99211

== ENCOUNTER → 2020-09-19 | Outpatient (CLI) | payer OTHER ==
--- NOTE | 2020-09-19 14:01 | MM ---
Reason for exam: screening (asymptomatic). Baseline mammogram. History: Family history of breast cancer in maternal aunt and ovarian cancer in maternal aunt. Took hormonal contraceptives for 1 year beginning at age 18. Physical Findings: Nurse did not find any significant physical abnormalities on exam. MG Screening Mammo w CAD Bilateral CC and MLO view(s) were taken. XCCL view(s) were taken of the left breast. There is no discrete abnormality. These results were verbally communicated with the patient and result sheet given to the patient on 09/19/20. ASSESSMENT: Benign, BI-RAD 2 RECOMMENDATION: Routine screening mammogram of both breasts in 1 year.
== END | disposition home or self-care (01) ==
LOC: RADMAMWWP 12:42
PROVIDERS: ATTEND Family Medicine
DX: Z12.31 Encounter for screening mammogram for malignant neoplasm of breast (principal)
CPT/HCPCS: 77067

== ENCOUNTER 2022-10-15 06:43 | Emergency (ER) | payer OTHER ==
--- NOTE | 2022-10-15 07:33 | ED ---
General Adult HPI - General Chief complaint: Extremity Injury, Lower Stated complaint: Fall, right leg pain Time Seen by Provider: 10/15/22 06:54 Source: patient, RN notes reviewed Mode of arrival: wheelchair Limitations: no limitations - History of Present Illness Initial comments: 41-year-old female presents emergency Department with chief complaint of sudden fall. Patient states she is going on her driveway slopes states that she hit some ice slipped, fall. Patient states she twisted her knee went to right foot pain no head injury no loss conscious. Patient states that she has increased pain with weightbearing she does have some mild foot tenderness and pain without weightbearing no paresthesias no back pain no hip pain no other associated complaints. - Related Data Home Medications Medication Instructions Recorded Confirmed ARIPiprazole [Abilify] 5 mg PO DAILY 08/16/19 11/29/19 DULoxetine HCL [Cymbalta] 60 mg PO BID 08/16/19 11/29/19 traZODone HCL [TraZODone HCl] 100 mg PO HS 08/16/19 11/29/19 metFORMIN HCL [Glucophage] 500 mg PO AC-SUPPER 09/15/19 11/29/19 Previous Rx's Medication Instructions Recorded Omeprazole 40 mg PO DAILY #30 capsule. 09/18/19 Ergocalciferol [Vitamin D2 50,000 unit PO Q7D #12 cap 11/29/19 (ISDROBERT)] LORazepam [Ativan] 1 mg PO BID 3 Days #6 tab 06/21/22 Allergies Allergy/AdvReac Type Severity Reaction Status Date / Time Sulfa (Sulfonamide Allergy Rash/Hives Verified 10/15/22 06:50 Antibiotics) BANANAS Allergy THROAT Uncoded 10/15/22 06:50 SWELLS COCONUT Allergy THROAT Uncoded 10/15/22 06:50 SWELLS Review of Systems ROS Statement: Those systems with pertinent positive or pertinent negative responses have been documented in the HPI. ROS Other: All systems not noted in ROS Statement are negative. Past Medical History Past Medical History: Pneumonia, Sleep Apnea/CPAP/BIPAP Additional Past Medical History / Comment(s): back pain, numbness & tingling (bilateral legs with cold temperatures), not using c-pap though she was dx with sleep apnea (??), prediabetes, History of Any Multi-Drug Resistant Organisms: None Reported Past Surgical History: Orthopedic Surgery, Tubal Ligation Additional Past Surgical History / Comment(s): bilateral carpul tunnel surgery, left knee arthroscopic + repair of torn ligaments, Dec 2018: Nerve ablation lumbar spine (Dr. Dumont; in office procedure) Past Anesthesia/Blood Transfusion Reactions: No Reported Reaction Additional Past Anesthesia/Blood Transfusion Reaction / Comment(s): No blood transfusion to date Past Psychological History: Anxiety, Depression Smoking Status: Never smoker Past Alcohol Use History: Occasional Past Drug Use History: None Reported - Past Family History Mother Family Medical History: CVA/TIA, Hyperlipidemia, Hypertension Father Family Medical History: Hyperlipidemia, Hypertension Additional Family Medical History / Comment(s): at age 60 from alcoholism (organ failure) Brother(s) Family Medical History: No Reported History General Exam Limitations: no limitations General appearance: alert, in no apparent distress Head exam: Present: atraumatic, normocephalic, normal inspection Eye exam: Present: normal appearance, PERRL, EOMI. Absent: scleral icterus, conjunctival injection, periorbital swelling Respiratory exam: Present: normal lung sounds bilaterally. Absent: respiratory distress, wheezes, rales, rhonchi, stridor Cardiovascular Exam: Present: regular rate, normal rhythm, normal heart sounds. Absent: systolic murmur, diastolic murmur, rubs, gallop, clicks Extremities exam: Present: other (Mild tenderness right knee, right foot, neurovascular intact, no obvious deformity, no hip tenderness or proximal femur tenderness no malleoli tenderness patient is able to bear weight) Course Vital Signs 10/15/22 06:51 Temperature 97 F L Pulse Rate 83 Respiratory 16 Rate Blood Pressure 146/94 O2 Sat by Pulse 98 Oximetry Medical Decision Making - Medical Decision Making X-ray of the foot was obtained and interpreted by me no acute fracture no os seous lesion, x-ray right knee interpreted by me and radiologist no acute fractures small joint effusion. Patient has a right knee sprain concerning for ligamentous injury given her fall. Patient follow-up with orthopedics return parameters were discussed. Disposition Clinical Impression: Right knee sprain, Right foot sprain Disposition: HOME SELF-CARE Condition: Stable Instructions (If sedation given, give patient instructions): Foot Sprain (ED), Knee Sprain (ED) Additional Instructions: Please return to the Emergency Department if symptoms worsen or any other concerns. Is patient prescribed a controlled substance at d/c from ED?: No Referrals: Vivi Mccoy DO [Primary Care Provider] - 1-2 days Finesse Glynn MD [STAFF PHYSICIAN] - 1-2 days Time of Disposition: 08:06
--- NOTE | 2022-10-15 07:59 | XR ---
EXAMINATION TYPE: XR knee complete RT DATE OF EXAM: 10/15/2022 COMPARISON: 04/13/2019 HISTORY: Fall, pain TECHNIQUE: 3 view right knee FINDINGS: Joint spaces are preserved. Small joint effusion may be present. No acute fractures or disl ocations are evident. MRI could be performed if evaluation of soft tissues would be of benefit. Follo w up exams can be performed 710 days from acute trauma for continued pain. IMPRESSION: 1. No acute osseous abnormality. 2. Suggestion of a small joint effusion.
--- NOTE | 2022-10-15 08:01 | XR ---
EXAMINATION TYPE: XR foot complete RT DATE OF EXAM: 10/15/2022 COMPARISON: None HISTORY: Fall, pain TECHNIQUE: 3 view right foot FINDINGS: No acute fracture or dislocation is evident. Joint spaces are preserved. Soft tissues appea r normal. Follow up exams can be performed 7-10 days. Acute trauma for continued pain. IMPRESSION: 1. No acute osseous abnormality.
[2022-10-15 08:29] VITALS: BP 140/105; PULSE 77; RESP 18; TEMP 97.6
== END 2022-10-15 08:33 | disposition home or self-care (01) ==
LOC: EC 06:43
DX: S83.91XA Sprain of unspecified site of right knee, initial encounter (principal); S93.601A Unspecified sprain of right foot, initial encounter; F41.9 Anxiety disorder, unspecified; F32.A Depression, unspecified; Z88.2 Allergy status to sulfonamides; Z91.018 Allergy to other foods; Z79.84 Long term (current) use of oral hypoglycemic drugs; Z79.899 Other long term (current) drug therapy; W00.0XXA Fall on same level due to ice and snow, initial encounter
CPT/HCPCS: 99283

== ENCOUNTER 2022-11-18 18:24 | Emergency (ER) | payer OTHER ==
[2022-11-18 18:28] VITALS: TEMP 97.9
[2022-11-18] MEDS ORDERED: KETOROLAC 15 MG/ML 1 ML VIAL IM STA (18:53)
--- NOTE | 2022-11-18 19:14 | ED ---
General Adult HPI - General Chief complaint: Headache Stated complaint: Headache Time Seen by Provider: 11/18/22 18:35 Source: patient, RN notes reviewed Mode of arrival: ambulatory Limitations: no limitations - History of Present Illness Initial comments: 42-year-old female with no significant past medical history presents to the emergency department with a chief complaint of headache x 1 month. She describes her headache as starting at the base of her neck which radiates up and feels like a tight band around her head. She saw her PCP for this and was given toradol which has provided mild relief of her symptoms. She denies dizziness, lightheadedness, nausea, vomiting, photophobia. Denies history of migraines. - Related Data Home Medications Medication Instructions Recorded Confirmed ARIPiprazole [Abilify] 5 mg PO DAILY 08/16/19 11/29/19 DULoxetine HCL [Cymbalta] 60 mg PO BID 08/16/19 11/29/19 traZODone HCL [TraZODone HCl] 100 mg PO HS 08/16/19 11/29/19 metFORMIN HCL [Glucophage] 500 mg PO AC-SUPPER 09/15/19 11/29/19 Previous Rx's Medication Instructions Recorded Omeprazole 40 mg PO DAILY #30 capsule. 09/18/19 Ergocalciferol [Vitamin D2 50,000 unit PO Q7D #12 cap 11/29/19 (JACKIE)] LORazepam [Ativan] 1 mg PO BID 3 Days #6 tab 06/21/22 Ketorolac [Toradol] 10 mg PO Q8HR #15 tab 11/18/22 Allergies Allergy/AdvReac Type Severity Reaction Status Date / Time Sulfa (Sulfonamide Allergy Rash/Hives Verified 11/18/22 18:28 Antibiotics) BANANAS Allergy THROAT Uncoded 11/18/22 18:28 SWELLS COCONUT Allergy THROAT Uncoded 11/18/22 18:28 MITCHEL Review of Systems ROS Statement: Those systems with pertinent positive or pertinent negative responses have been documented in the HPI. ROS Other: All systems not noted in ROS Statement are negative. Past Medical History Past Medical History: Pneumonia, Sleep Apnea/CPAP/BIPAP Additional Past Medical History / Comment(s): back pain, numbness & tingling (bilateral legs with cold temperatures), not using c-pap though she was dx with sleep apnea (??), prediabetes, History of Any Multi-Drug Resistant Organisms: None Reported Past Surgical History: Orthopedic Surgery, Tubal Ligation Additional Past Surgical History / Comment(s): bilateral carpul tunnel surgery, left knee arthroscopic + repair of torn ligaments, Dec 2018: Nerve ablation lumbar spine (Dr. Dumont; in office procedure) Past Anesthesia/Blood Transfusion Reactions: No Reported Reaction Additional Past Anesthesia/Blood Transfusion Reaction / Comment(s): No blood transfusion to date Past Psychological History: Anxiety, Depression Smoking Status: Never smoker Past Alcohol Use History: Occasional Past Drug Use History: None Reported - Past Family History Mother Family Medical History: CVA/TIA, Hyperlipidemia, Hypertension Father Family Medical History: Hyperlipidemia, Hypertension Additional Family Medical History / Comment(s): at age 60 from alcoholism (organ failure) Brother(s) Family Medical History: No Reported History General Exam Limitations: no limitations General appearance: alert, in no apparent distress Head exam: Present: atraumatic, normocephalic, normal inspection Eye exam: Present: normal appearance, PERRL, EOMI. Absent: scleral icterus, conjunctival injection, periorbital swelling ENT exam: Present: normal exam, mucous membranes moist Neck exam: Present: normal inspection. Absent: tenderness, meningismus, lymphadenopathy Respiratory exam: Present: normal lung sounds bilaterally. Absent: respiratory distress, wheezes, rales, rhonchi, stridor Cardiovascular Exam: Present: regular rate, normal rhythm, normal heart sounds. Absent: systolic murmur, diastolic murmur, rubs, gallop, clicks GI/Abdominal exam: Present: soft, normal bowel sounds. Absent: distended, tenderness, guarding, rebound, rigid Extremities exam: Present: normal inspection, full ROM, normal capillary refill. Absent: tenderness, pedal edema, joint swelling, calf tenderness Back exam: Present: normal inspection Neurological exam: Present: alert, oriented X3, CN II-XII intact Psychiatric exam: Present: normal affect, normal mood Skin exam: Present: warm, dry, intact, normal color. Absent: rash Course Vital Signs 11/18/22 11/18/22 18:25 20:32 Temperature 97.9 F Pulse Rate 85 87 Respiratory 16 18 Rate Blood Pressure 117/80 139/86 O2 Sat by Pulse 98 96 Oximetry - Reevaluation(s) Reevaluation #1: 11/18/22 19:24 Patient reevaluated. Patient reports symptomatic relief status post Toradol. 11/18/22 19:24 Medical Decision Making - Medical Decision Making Was pt. sent in by a medical professional or institution ([facility], [facility], urgent care, hospital, or half-way...) When possible be specific @ -[No] Did you speak to anyone other than the patient for history (EMS, parent, family, police, friend...)? What history was obtained from this source @ -[No] Did you review nursing and triage notes (agree or disagree)? Why? @ -[I reviewed and agree with nursing and triage notes] Were old charts reviewed (outside hosp., previous admission, EMS record, old EKG, old radiological studies, urgent care reports/EKG's, half-way records)? Report findings @ -[No old charts were reviewed] Differential Diagnosis (chest pain, altered mental status, abdominal pain women, abdominal pain men, vaginal bleeding, weakness, fever, dyspnea, syncope, headache, dizziness, GI bleed, back pain, seizure, CVA, palpatations, mental health)? @ -[not applicable] EKG interpreted by me (3pts min.). @ -[As above] X-rays interpreted by me (1pt min.). @ -[None done] CT interpreted by me (1pt min.). @ -negative for acute intracranial process. U/S interpreted by me (1pt. min.). @ -[None done] What testing was considered but not performed or refused? (CT, X-rays, U/S, labs)? Why? @ -[None] What meds were considered but not given or refused? Why? @ -[None] Did you discuss the management of the patient with other professionals (professionals i.e. [facility], [facility], lab, RT, psych nurse, manager social media, fine grade bulldozer operator, teacher, surveillance dual rate officer, corrections caseworker)? Give summary @ -[No] Was smoking cessation discussed for >3mins.? @ -[No] Was critical care preformed (if so, how long)? @ -[No] Were there social determinants of health that impacted care today? How? (Homelessness, low income, unemployed, alcoholism, drug addiction, transportation, low edu. Level, literacy, decrease access to med. care, penitentiary, rehab)? @ -[No] Was there de-escalation of care discussed even if they declined (Discuss DNR or withdrawal of care, Hospice)? DNR status @ -[No] What co-morbidities impacted this encounter? (DM, HTN, Smoking, COPD, CAD, Cancer, CVA, ARF, Chemo, Hep., AIDS, mental health diagnosis, sleep apnea, morbid obesity)? @ -[None] Was patient admitted / discharged? Hospital course, mention meds given and route, prescriptions, significant lab abnormalities, going to OR and other pertinent info. @ -42-year-old female presents to the emergency department with headache. She had a history and physical performed while in the emergency department physical exam essentially unremarkable. Patient was given toradol with symptomatic relief. CT negative. He was given a prescription for toradol. He was encouraged to follow up with his primary care doctor within 1-2 days if symptoms worsen or persist. Return precautions were discussed. Patient was discharged in stable condition all questions and comments were addressed. I discussed the case with Dr. Arnold, [place] who agrees with the plan of care. Undiagnosed new problem with uncertain prognosis? @ -[No] Drug Therapy requiring intensive monitoring for toxicity (Heparin, Nitro, Insulin, Cardizem)? @ -[No] Were any procedures done? @ -[No] Diagnosis/symptom? @ -tension headache Acute, or Chronic, or Acute on Chronic? @ -acute Uncomplicated (without systemic symptoms) or Complicated (systemic symptoms)? @ -uncomplicated Side effects of treatment? @ -[No] Exacerbation, Progression, or Severe Exacerbation? @ -[No] Poses a threat to life or bodily function? How? (Chest pain, [place], [place], pneumonia, PE, COPD, DKA, ARF, appy, cholecystitis, CVA, Diverticulitis, Homicidal, Suicidal, threat to staff... and all critical care pts) @ -[No] Disposition Clinical Impression: Tension headache Disposition: HOME SELF-CARE Condition: Stable Instructions (If sedation given, give patient instructions): Acute Headache (ED) Additional Instructions: These return to the nearest emergency department if worse symptoms worsen or persist. Prescriptions: Ketorolac [Toradol] 10 mg PO Q8HR #15 tab Is patient prescribed a controlled substance at d/c from ED?: No Referrals: Vivi Mccoy DO [Primary Care Provider] - 1-2 days Time of Disposition: 20:21
--- NOTE | 2022-11-18 20:09 | CT ---
EXAMINATION TYPE: CT brain wo con CT DLP: 1143.4 mGycm, Automated exposure control for dose reduction was used. DATE OF EXAM: 11/18/2022 7:08 PM COMPARISON: Prior CT Brain from 08/28/2017. CLINICAL INDICATION:Female, 42 years old with history of headache, posterior headache that wraps to t he front x few months TECHNIQUE: Brain: Multiple axial CT images of the brain were obtained without IV contrast. FINDINGS: Brain: Extra-axial spaces: No abnormal extra-axial fluid collections. Ventricular system: Within normal limits Cerebral parenchyma: No acute intraparenchymal hemorrhage or mass effect. The santos-white junction is well differentiated. Cerebellum: Unremarkable. Mass effect: No evidence of midline shift. Intracranial vasculature: unremarkable Soft tissues: Normal. Calvarium/osseous structures: No depressed skull fracture. Paranasal sinuses and mastoid air cells: Extensive mucosal thickening of the bilateral maxillary sinu ses. Visualized orbits: Orbital contents are intact. IMPRESSION: 1. No acute intracranial process. 2. Maxillary sinusitis.
[2022-11-18 20:33] VITALS: BP 139/86; PULSE 87; RESP 18
== END 2022-11-18 20:33 | disposition home or self-care (01) ==
LOC: EC 18:24
DX: G44.209 Tension-type headache, unspecified, not intractable (principal); J32.0 Chronic maxillary sinusitis; G47.30 Sleep apnea, unspecified; F41.9 Anxiety disorder, unspecified; F32.A Depression, unspecified; Z88.2 Allergy status to sulfonamides; Z91.018 Allergy to other foods
CPT/HCPCS: 70450; 99284; 96372; J1885

== ENCOUNTER → 2023-02-20 | Outpatient (CLI) | payer OTHER ==
[2023-02-20 23:46] LABS: HCT 44.1 % (37.2-46.3); MCH 29.4 pg (27.0-32.0); MCHC 31.7 g/dL (32.0-37.0); MCV 92.5 fL (80.0-97.0); Mean Platelet Volume 12.7 fL (9.5-12.2); NRBC Per 100 WBC 0 /100 WBCS (0.0-0.0); Platelet Count 247 X 10*3/uL (140-440); RBC 4.77 X 10*6/uL (4.10-5.20); WBC 8.93 X 10*3/uL (4.50-10.00)
[2023-02-21 00:03] LABS: Erythrocyte Sedimentation Rate 4 mm/Hr (0-20)
[2023-02-21 08:20] LABS: C Reactive Protein <0.30 mg/dL (0.00-0.80); Creatine Kinase 48 U/L (26-186)
== END | disposition home or self-care (01) ==
LOC: LABWHC1 10:01
PROVIDERS: ATTEND Psychiatry & Neurology Neurology
DX: M19.90 Unspecified osteoarthritis, unspecified site (principal); I49.9 Cardiac arrhythmia, unspecified; M79.10 Myalgia, unspecified site; R20.8 Other disturbances of skin sensation; R26.9 Unspecified abnormalities of gait and mobility; R25.2 Cramp and spasm
CPT/HCPCS: 36415; 82085; 82550; 85027; 85652; 86140; 93005

== ENCOUNTER → 2023-04-07 | Outpatient (CLI) | payer OTHER | END | disposition home or self-care (01) | LOC: LABWHC1 08:06 | PROVIDERS: ATTEND Psychiatry & Neurology Neurology | DX: I49.9 Cardiac arrhythmia, unspecified (principal) | CPT/HCPCS: 36415; 93005 ==

== ENCOUNTER 2023-08-28 16:36 | Emergency (ER) | payer OTHER ==
[2023-08-28] MEDS ORDERED: DEXAMETHASONE SOD PHOSPHATE 10 MG/ML 1 ML VIAL IM STA (17:05)
--- NOTE | 2023-08-28 17:16 | ED ---
URI HPI - General Chief Complaint: Upper Respiratory Infection Stated Complaint: ENT Time Seen by Provider: 08/28/23 16:44 Source: patient, RN notes reviewed, old records reviewed Mode of arrival: ambulatory Limitations: no limitations - History of Present Illness Initial Comments: This is a 42-year-old female to the emergency department for evaluation of sore throat, scratchy voice, neck discomfort with following a postnasal drip. Patient has recently been on antibiotics azithromycin Z-Marshall which is finished. Patient states symptoms initially improved with returned. No fevers MD Complaint: cough, sore throat, nasal congestion -: days(s) Severity: mild Consistency: constant Improves With: nothing Worsens With: nothing Associated Symptoms: denies other symptoms Treatments Prior to Arrival: none - Related Data Home Medications Medication Instructions Recorded Confirmed ARIPiprazole [Abilify] 5 mg PO HS 08/16/19 03/05/23 DULoxetine HCL [Cymbalta] 60 mg PO BID 08/16/19 03/05/23 metFORMIN HCL [Glucophage] 500 mg PO AC-SUPPER 09/15/19 03/05/23 Dulaglutide [Trulicity] 1.5 mg SQ RASCON 03/02/23 03/05/23 HYDROcodone/APAP 5-325MG [[place] 1 tab PO Q6HR PRN 03/02/23 03/02/23 5-325] Ibuprofen [Motrin] 800 mg PO Q8H PRN 03/02/23 03/02/23 Pregabalin [Lyrica] 150 mg PO TID 03/02/23 03/02/23 traZODone HCL 200 mg PO HS 03/02/23 03/02/23 Previous Rx's Medication Instructions Recorded predniSONE 50 mg PO DAILY #5 tab 08/28/23 Allergies Allergy/AdvReac Type Severity Reaction Status Date / Time Sulfa (Sulfonamide Allergy Rash/Hives Verified 03/05/23 08:58 Antibiotics) BANANAS Allergy THROAT Uncoded 03/05/23 08:58 SWELLS COCONUT Allergy THROAT Uncoded 03/05/23 08:58 SWELLS Review of Systems ROS Statement: Those systems with pertinent positive or pertinent negative responses have been documented in the HPI. ROS Other: All systems not noted in ROS Statement are negative. Past Medical History Past Medical History: Fibromyalgia, Pneumonia, Sleep Apnea/CPAP/BIPAP Additional Past Medical History / Comment(s): back pain, numbness & tingling (bilateral legs with cold temperatures), not using c-pap though she was dx with sleep apnea 2013-(??), prediabetes, History of Any Multi-Drug Resistant Organisms: None Reported Past Surgical History: Uterine Ablation Additional Past Surgical History / Comment(s): bilateral carpul tunnel surgery, left knee arthroscopic + repair of torn ligaments, Dec 2018: Nerve ablation lumbar spine (Dr. Dumont; in office procedure) Past Anesthesia/Blood Transfusion Reactions: No Reported Reaction Additional Past Anesthesia/Blood Transfusion Reaction / Comment(s): No blood transfusion to date Past Psychological History: Anxiety, Depression Smoking Status: Never smoker - Past Family History Mother Family Medical History: CVA/TIA, Hyperlipidemia, Hypertension Father Family Medical History: Hyperlipidemia, Hypertension Additional Family Medical History / Comment(s): at age 60 from alcoholism (organ failure) Brother(s) Family Medical History: No Reported History General Exam - General Exam Comments Initial Comments: No stridor Limitations: no limitations General appearance: alert, in no apparent distress Head exam: Present: atraumatic, normocephalic, normal inspection Eye exam: Present: normal appearance, PERRL, EOMI. Absent: scleral icterus, conjunctival injection, periorbital swelling ENT exam: Present: normal exam, mucous membranes moist Neck exam: Present: normal inspection. Absent: tenderness, meningismus, lymphadenopathy Respiratory exam: Present: normal lung sounds bilaterally. Absent: respiratory distress, wheezes, rales, rhonchi, stridor Cardiovascular Exam: Present: regular rate, normal rhythm, normal heart sounds. Absent: systolic murmur, diastolic murmur, rubs, gallop, clicks GI/Abdominal exam: Present: soft, normal bowel sounds. Absent: distended, tenderness, guarding, rebound, rigid Extremities exam: Present: normal inspection, full ROM, normal capillary refill. Absent: tenderness, pedal edema, joint swelling, calf tenderness Back exam: Present: normal inspection Neurological exam: Present: alert, oriented X3, CN II-XII intact Psychiatric exam: Present: normal affect, normal mood Skin exam: Present: warm, dry, intact, normal color. Absent: rash Course Vital Signs 08/28/23 08/28/23 16:38 19:12 Temperature 98.8 F 97.4 F L Pulse Rate 100 82 Respiratory 20 18 Rate Blood Pressure 135/88 134/79 O2 Sat by Pulse 96 97 Oximetry - Reevaluation(s) Reevaluation #1: 08/28/23 17:51 Medical record is reviewed Reevaluation #2: 08/28/23 18:57 Patient symptoms are improved Reevaluation #3: 08/28/23 18:57 patient 40 results and questions have been answered Reevaluation #4: 08/28/23 17:51 Was pt. sent in by a medical professional or institution (, PEPE, KNOCKOUT MACHINE OPERATOR, urgent care, hospital, or [facility]...) When possible be specific @ -no Did you speak to anyone other than the patient for history (EMS, parent, family, police, friend...)? What history was obtained from this source @ -no Did you review nursing and triage notes (agree or disagree)? Why? @ -agree Are old charts reviewed (outside hosp., previous admission, EMS record, old EKG, old radiological studies, urgent care reports/EKG's, [facility] records)? Report findings @ -yes Differential Diagnosis (chest pain, altered mental status, abdominal pain women, abdominal pain men, vaginal bleeding, weakness, fever, dyspnea, syncope, headache, dizziness, GI bleed, back pain, seizure, CVA, palpatations, mental health, musculoskeletal)? @ -prior EKG interpreted by me (3pts min.). @ - X-rays interpreted by me (1pt min.). @ -yes CT interpreted by me (1pt min.). @ -no U/S interpreted by me (1pt. min.). @ -no What testing was considered but not performed or refused? (CT, X-rays, U/S, lab s)? Why? @ -none What meds were considered but not given or refused? Why? @ -none Did you discuss the management of the patient with other professionals (professionals i.e. PEPE [place], KNOCKOUT MACHINE OPERATOR, lab, RT, psych nurse, social sciences research scientist, security attendant, teacher, training officer, caser in)? Give summary @ -no Was smoking cessation discussed for >3mins.? @ -no Was critical care preformed (if so, how long)? @ -no Were there social determinants of health that impacted care today? How? (Homelessness, low income, unemployed, alcoholism, drug addiction, transportation, low edu. Level, literacy, decrease access to med. care, alf, rehab)? @ -none Was there de-escalation of care discussed even if they declined (Discuss DNR or withdrawal of care, Hospice)? DNR status @ -no What co-morbidities impacted this encounter? (DM, HTN, Smoking, COPD, CAD, Cancer, CVA, ARF, Chemo, Hep., AIDS, mental health diagnosis, sleep apnea, morbid obesity)? @ -none Was patient admitted / discharged? Hospital course, mention meds given and route, prescriptions, significant lab abnormalities, going to OR and other pertinent info. @ - 42 female to the emergency department for evaluation. Patient Dese with upper respiratory infection sore throat hospital voice. Patient symptoms improved here with steroids, x-rays are negative patient can be discharged home Discharge Undiagnosed new problem with uncertain prognosis? @ -no Drug Therapy requiring intensive monitoring for toxicity (Heparin, Nitro, Insulin, Cardizem)? @ -no Were any procedures done? @ -no Diagnosis/symptom? @ - AcSore throat pharyngitisnoute, or Chronic, or Acute on Chronic? @ -Acute Uncomplicated (without systemic symptoms) or Complicated (systemic symptoms)? @ -Complicated Side effects of treatment? @ -no Exacerbation, Progression, or Severe Exacerbation? @ -exacerbation Poses a threat to life or bodily function? How? (Chest pain, [place], [place], pneumonia, PE, COPD, DKA, ARF, appy, cholecystitis, CVA, Diverticulitis, Homicidal, Suicidal, threat to staff... and all critical care pts) @ -no Medical Decision Making - Medical Decision Making 42 female to the emergency department for evaluation. Patient Dese with upper respiratory infection sore throat hospital voice. Patient symptoms improved here with steroids, x-rays are negative patient can be discharged home - Radiology Data Radiology results: report reviewed (X-ray soft tissue neck and chest are negative for acute disease), image reviewed Disposition Clinical Impression: Pharyngitis, Upper respiratory tract infection, Laryngitis Disposition: HOME SELF-CARE Condition: Good Instructions (If sedation given, give patient instructions): Pharyngitis (ED), Croup (ED) Prescriptions: predniSONE 50 mg PO DAILY #5 tab Is patient prescribed a controlled substance at d/c from ED?: No Referrals: Vivi Mccoy DO [Primary Care Provider] - 1-2 days Time of Disposition: 19:00
--- NOTE | 2023-08-28 17:29 | XR ---
EXAMINATION TYPE: XR soft tissue neck DATE OF EXAM: 08/28/2023 COMPARISON: 01/28/2018 HISTORY: Cough congestion TECHNIQUE: 2 view soft tissue neck FINDINGS: Prevertebral space is normal. Disc heights are preserved. Vertebral body heights are preser mariana. Posterior spinal lamellar line is intact. Epiglottis is visualized appears normal. Subglottic ai rway is unremarkable. IMPRESSION: 1. Unremarkable soft tissue neck
--- NOTE | 2023-08-28 17:55 | XR ---
EXAMINATION TYPE: XR chest 1V portable DATE OF EXAM: 08/28/2023 COMPARISON: 06/21/2022 INDICATION: Cough congestion TECHNIQUE: Single frontal view of the chest is obtained. FINDINGS: The heart size is normal. The pulmonary vasculature is normal. The lungs are clear. IMPRESSION: 1. No acute pulmonary process.
[2023-08-28 19:25] VITALS: BP 134/79; PULSE 82; RESP 18; TEMP 97.4
== END 2023-08-28 19:13 | disposition home or self-care (01) ==
LOC: EC 16:36
DX: J04.0 Acute laryngitis (principal); J02.9 Acute pharyngitis, unspecified; G47.30 Sleep apnea, unspecified; F32.A Depression, unspecified; F41.9 Anxiety disorder, unspecified; Z79.899 Other long term (current) drug therapy; Z88.2 Allergy status to sulfonamides; Z91.018 Allergy to other foods
CPT/HCPCS: 70360; 71045; 99283; 96372; J1100

== ENCOUNTER 2024-09-13 15:23 | Emergency (ER) | payer OTHER ==
[2024-09-13] MEDS: SODIUM CHLORIDE 0.9% 1,000 ML IV STA (16:52)
[2024-09-13] MEDS: MORPHINE SULFATE 4 MG/ML SYRINGE IVP STA (16:54)
[2024-09-13] MEDS: KETOROLAC 15 MG/ML 1 ML VIAL IVP STA (16:58)
[2024-09-13] MEDS: ONDANSETRON 4 MG/2 ML VIAL IVP STA (16:59)
[2024-09-13 17:07] LABS: Basophils # (A) 0.1 k/uL (0-0.2); Basophils % (A) 1 %; Eosinophils # (A) 0.2 k/uL (0-0.7); Eosinophils % (A) 3 %; HGB 14.3 gm/dL (11.4-16.0); Lymphocytes # (A) 1.8 k/uL (1.0-4.8); Lymphocytes % (A) 18 %; MCH 29.3 pg (25.0-35.0); MCHC 32.6 g/dL (31.0-37.0); MCV 90.1 fL (80.0-100.0); Monocytes # (A) 0.6 k/uL (0-1.0); Monocytes % (A) 6 %; Neutrophils # (A) 6.9 k/uL (1.3-7.7); Neutrophils % (A) 71 %; Platelet Count 190 k/uL (150-450); RBC 4.88 m/uL (3.80-5.40); RDW 12.8 % (11.5-15.5); WBC 9.8 k/uL (3.8-10.6)
[2024-09-13 17:25] LABS: ALT 37 U/L (4-34); AST 37 U/L (14-36); African American GFR (CKD) >90 (>60 ml/min/1.73 sqM); Albumin 4.3 g/dL (3.5-5.0); Alkaline Phosphatase 61 U/L (38-126); Anion Gap 9 mmol/L; Blood Urea Nitrogen 11 mg/dL (7-17); Calcium 9.2 mg/dL (8.4-10.2); Carbon Dioxide 22 mmol/L (22-30); Chloride 106 mmol/L (98-107); Glucose 189 mg/dL (74-99); Lipase 110 U/L (23-300); Non-African American GFR(CKD) >90 (>60 ml/min/1.73 sqM); Potassium 4.4 mmol/L (3.5-5.1); Sodium 137 mmol/L (137-145); Total Bilirubin 0.6 mg/dL (0.2-1.3)
[2024-09-13 17:38] LABS: Appearance,Urine Cloudy (Clear); Bacteria,Urine Rare /hpf; Bilirubin,Urine Negative (Negative); Blood,Urine Large (Negative); Color,Urine Yellow; Glucose,Urine (UA) 4+ (Negative); Ketones,Urine Negative (Negative); Leukocyte Esterase,Urine Negative (Negative); Mucus,Urine Few /hpf; Nitrite,Urine Negative (Negative); Protein,Urine Trace (Negative); RBC,Urine >182 /hpf (0-5); Specific Gravity,Urine 1.024 (1.001-1.035); Squamous Epithelial Cell,Urine 5 /hpf (0-4); Urobilinogen,Urine <2.0 mg/dL (<2.0); WBC,Urine 4 /hpf (0-5)
--- NOTE | 2024-09-13 18:35 | CT ---
EXAMINATION TYPE: CT abdomen pelvis wo con DATE OF EXAM: 09/13/2024 6:20 PM COMPARISON: 01/28/2018 CLINICAL INDICATION: Female, 43 years old with history of left flank pain; left flank pain that radia hussein into the middle of her stomach TECHNIQUE: Axial CT abdomen pelvis wo con;Sagittal and coronal reformats were created on a separate workstation. Contrast used: mL of , (none if empty) Oral contrast used: without Oral Contrast (none if empty) CT DLP: 1477.4 mGycm, Automated exposure control for dose reduction was used. FINDINGS: LOWER CHEST: Unremarkable ABDOMEN LIVER: Unremarkable GALLBLADDER AND BILE DUCTS: Unremarkable. PANCREAS: Unremarkable. SPLEEN: Unremarkable. ADRENAL GLANDS: Unremarkable. KIDNEYS AND URETERS: Nonobstructing right a millimeter calculus. Mild left hydronephrosis secondary o bstructing 5 mm calculus at the ureteral fascicular junction. No additional left renal calculi. PELVI S BLADDER: No evidence for wall thickening or mass given limitations of exam. REPRODUCTIVE: Unremarkable. ABDOMEN & PELVIS STOMACH AND BOWEL: No evidence of bowel obstruction. The appendix is normal. PERITONEUM/RETROPERITONEUM: No evidence of pneumoperitoneum or free fluid. VASCULATURE: No evidence of aortic aneurysm. MUSCULOSKELETAL: No acute osseous abnormalities LYMPH NODES: No gross evidence for lymphadenopathy. SOFT TISSUE/ABDOMINAL WALL: Unremarkable IMPRESSION: 1. Mild left hydronephrosis secondary obstructing 5 mm calculus at the ureterovesicular junction. 2. Nonobstructing right renal calculus. [facility] Eligio Jasmine, , 09/13/2024 6:33 PM
[2024-09-13] MEDS ORDERED: MORPHINE SULFATE 4 MG/ML SYRINGE IVP STA (20:44)
[2024-09-13] MEDS ORDERED: TAMSULOSIN 0.4 MG CAP.ER.24H PO STA (20:45)
--- NOTE | 2024-09-13 20:48 | ED ---
Abdominal Pain HPI - General Chief Complaint: Abdominal Pain Stated Complaint: L sided abd pain Time Seen by Provider: 09/13/24 15:55 Source: patient Mode of arrival: wheelchair Limitations: no limitations - Related Data Home Medications Medication Instructions Recorded Confirmed ARIPiprazole [Abilify] 5 mg PO HS 08/16/19 09/13/24 traZODone HCL 200 mg PO HS 03/02/23 09/13/24 Albuterol Sulfate [Albuterol 1 - 2 puff INHALATION RT-Q4H PRN 09/13/24 09/13/24 Sulfate Hfa] DULoxetine HCL [Cymbalta] 30 mg PO HS 09/13/24 09/13/24 Dulaglutide [Trulicity] 3 mg SQ TU 09/13/24 09/13/24 HYDROcodone/APAP 7.5-325MG [[place] 1 tab PO TID 09/13/24 09/13/24 7.5-325] Multivitamins, Thera [Multivitamin 1 tab PO DAILY 09/13/24 09/13/24 (formulary)] Omeprazole [PriLOSEC] 20 mg PO HS 09/13/24 09/13/24 Tiotropium 2.5 Mcg/Puff [Spiriva 2 puff INHALATION RT-DAILY 09/13/24 09/13/24 Respimat 2.5 Mcg] Previous Rx's Medication Instructions Recorded HYDROcodone/APAP 10-325MG [[place] 1 tab PO Q6HR PRN 3 Days #12 tab 09/13/24 10-325] Ketorolac [Toradol] 10 mg PO Q8HR #15 tab 09/13/24 Ondansetron Odt [Zofran Odt] 4 mg PO Q8HR PRN #10 tab 09/13/24 Tamsulosin [Flomax] 0.4 mg PO DAILY #7 cap 09/13/24 Allergies Allergy/AdvReac Type Severity Reaction Status Date / Time banana Allergy Anaphylaxis Verified 09/13/24 18:53 coconut Allergy Anaphylaxis Verified 09/13/24 18:53 Sulfa (Sulfonamide Allergy Rash/Hives Verified 09/13/24 18:53 Antibiotics) sulfamethoxazole Allergy Rash/Hives Verified 09/13/24 18:53 [From Bactrim] trimethoprim [From Bactrim] Allergy Rash/Hives Verified 09/13/24 18:53 Review of Systems ROS Statement: Those systems with pertinent positive or pertinent negative responses have been documented in the HPI. ROS Other: All systems not noted in ROS Statement are negative. Past Medical History Past Medical History: Fibromyalgia, Pneumonia, Sleep Apnea/CPAP/BIPAP Additional Past Medical History / Comment(s): back pain, numbness & tingling (bilateral legs with cold temperatures), not using c-pap though she was dx with sleep apnea 2013-(??), prediabetes, History of Any Multi-Drug Resistant Organisms: None Reported Past Surgical History: Uterine Ablation Additional Past Surgical History / Comment(s): bilateral carpul tunnel surgery, left knee arthroscopic + repair of torn ligaments, Dec 2018: Nerve ablation lumbar spine (Dr. Dumont; in office procedure) Past Anesthesia/Blood Transfusion Reactions: No Reported Reaction Additional Past Anesthesia/Blood Transfusion Reaction / Comment(s): No blood transfusion to date Past Psychological History: Anxiety, Depression Smoking Status: Never smoker Past Alcohol Use History: Occasional Past Drug Use History: None Reported - Past Family History Mother Family Medical History: CVA/TIA, Hyperlipidemia, Hypertension Father Family Medical History: Hyperlipidemia, Hypertension Additional Family Medical History / Comment(s): at age 60 from alcoholism (organ failure) Brother(s) Family Medical History: No Reported History General Exam Limitations: no limitations Course Vital Signs 09/13/24 09/13/24 09/13/24 15:25 16:12 18:26 Temperature 97.6 F Pulse Rate 103 H 82 96 Respiratory 22 18 16 Rate Blood Pressure 161/115 146/92 113/79 O2 Sat by Pulse 96 97 96 Oximetry 09/13/24 18:58 Temperature Pulse Rate 92 Respiratory 18 Rate Blood Pressure 130/94 O2 Sat by Pulse 97 Oximetry Medical Decision Making - Medical Decision Making Was pt. sent in by a medical professional or institution (, PA, EMERGENCY DEPT TECH, urgent care, hospital, or fdc...) When possible be specific @ -[No] Did you speak to anyone other than the patient for history (EMS, parent, family, police, friend...)? What history was obtained from this source @ -[No] Did you review nursing and triage notes (agree or disagree)? Why? @ -[I reviewed and agree with nursing and triage notes] Were old charts reviewed (outside hosp., previous admission, EMS record, old EKG, old radiological studies, urgent care reports/EKG's, fdc records)? Report findings @ -[No old charts were reviewed] Differential Diagnosis (chest pain, altered mental status, abdominal pain women, abdominal pain men, vaginal bleeding, weakness, fever, dyspnea, syncope, headache, dizziness, GI bleed, back pain, seizure, CVA, palpatations, mental health, musculoskeletal)? @ -[not applicable] EKG interpreted by me (3pts min.). @ -Yes and demonstrates sinus rhythm with rate of 82. [place] interval 158. QRS 90. QTc of 418. No acute ST segment elevations or depressions Q wave in lead III X-rays interpreted by me (1pt min.). @ -[None done] CT interpreted by me (1pt min.). @ -[None done] U/S interpreted by me (1pt. min.). @ -[None done] What testing was considered but not performed or refused? (CT, X-rays, U/S, labs)? Why? @ -[None] What meds were considered but not given or refused? Why? @ -[None] Did you discuss the management of the patient with other professionals (professionals i.e. , PA, EMERGENCY DEPT TECH, lab, RT, psych nurse, secondary social studies teacher, pelt dropper, teacher, intelligence officer, upper caser)? Give summary @ -[No] Was smoking cessation discussed for >3mins.? @ -[No] Was critical care preformed (if so, how long)? @ -[No] Were there social determinants of health that impacted care today? How? (Homele ssness, low income, unemployed, alcoholism, drug addiction, transportation, low edu. Level, literacy, decrease access to med. care, fci, rehab)? @ -[No] Was there de-escalation of care discussed even if they declined (Discuss DNR or withdrawal of care, Hospice)? DNR status @ -[No] What co-morbidities impacted this encounter? (DM, HTN, Smoking, COPD, CAD, Cancer, CVA, ARF, Chemo, Hep., AIDS, mental health diagnosis, sleep apnea, morbid obesity)? @ -[None] Was patient admitted / discharged? Hospital course, mention meds given and route, prescriptions, significant lab abnormalities, going to OR and other pertinent info. @ -[hospital course] Undiagnosed new problem with uncertain prognosis? @ -[No] Drug Therapy requiring intensive monitoring for toxicity (Heparin, Nitro, Insulin, Cardizem)? @ -[No] Were any procedures done? @ -[No] Diagnosis/symptom? @ -[default] Acute, or Chronic, or Acute on Chronic? @ -[default] Uncomplicated (without systemic symptoms) or Complicated (systemic symptoms)? @ -[default] Side effects of treatment? @ -[No] Exacerbation, Progression, or Severe Exacerbation? @ -[No] Poses a threat to life or bodily function? How? (Chest pain, [place], [place], pneumonia, PE, COPD, DKA, ARF, appy, cholecystitis, CVA, Diverticulitis, Homicidal, Suicidal, threat to staff... and all critical care pts) @ -[No] - Lab Data Result diagrams: 09/13/24 16:42 09/13/24 16:42 Lab Results 09/13/24 09/13/24 09/13/24 Range/Units 16:42 16:42 16:42 WBC 9.8 (3.8-10.6) k/uL RBC 4.88 (3.80-5.40) m/uL Hgb 14.3 (11.4-16.0) gm/dL Hct 44.0 (34.0-46.0) % MCV 90.1 (80.0-100.0) fL MCH 29.3 (25.0-35.0) pg MCHC 32.6 (31.0-37.0) g/dL RDW 12.8 (11.5-15.5) % Plt Count 190 (150-450) k/uL MPV 10.0 Neutrophils % 71 % Lymphocytes % 18 % Monocytes % 6 % Eosinophils % 3 % Basophils % 1 % Neutrophils # 6.9 (1.3-7.7) k/uL Lymphocytes # 1.8 (1.0-4.8) k/uL Monocytes # 0.6 (0-1.0) k/uL Eosinophils # 0.2 (0-0.7) k/uL Basophils # 0.1 (0-0.2) k/uL Sodium 137 (137-145) mmol/L Potassium 4.4 (3.5-5.1) mmol/L Chloride 106 (98-107) mmol/L Carbon Dioxide 22 (22-30) mmol/L Anion Gap 9 mmol/L BUN 11 (7-17) mg/dL Creatinine 0.68 (0.52-1.04) mg/dL Est GFR (CKD-EPI)AfAm >90 (>60 ml/min/1.73 sqM) Est GFR (CKD-EPI)NonAf >90 (>60 ml/min/1.73 sqM) Glucose 189 H (74-99) mg/dL Calcium 9.2 (8.4-10.2) mg/dL Total Bilirubin 0.6 (0.2-1.3) mg/dL AST 37 H (14-36) U/L ALT 37 H (4-34) U/L Alkaline Phosphatase 61 (38-126) U/L Total Protein 7.0 (6.3-8.2) g/dL Albumin 4.3 (3.5-5.0) g/dL Lipase 110 (23-300) U/L Urine Color Yellow Urine Appearance Cloudy H (Clear) Urine pH 5.0 (5.0-8.0) Ur Specific [place] 1.024 (1.001-1.035) Urine Protein Trace H (Negative) Urine Glucose (UA) 4+ H (Negative) Urine Ketones Negative (Negative) Urine Blood Large H (Negative) Urine Nitrite Negative (Negative) Urine Bilirubin Negative (Negative) Urine Urobilinogen <2.0 (<2.0) mg/dL Ur Leukocyte Esterase Negative (Negative) Urine RBC >182 H (0-5) /hpf Urine WBC 4 (0-5) /hpf Ur Squamous Epith Cells 5 H (0-4) /hpf Urine Bacteria Rare H (None) /hpf Urine Mucus Few H (None) /hpf Urine HCG, Qual (Not Detectd) 09/13/24 Range/Units 16:42 WBC (3.8-10.6) k/uL RBC (3.80-5.40) m/uL Hgb (11.4-16.0) gm/dL Hct (34.0-46.0) % MCV (80.0-100.0) fL MCH (25.0-35.0) pg MCHC (31.0-37.0) g/dL RDW (11.5-15.5) % Plt Count (150-450) k/uL MPV Neutrophils % % Lymphocytes % % Monocytes % % Eosinophils % % Basophils % % Neutrophils # (1.3-7.7) k/uL Lymphocytes # (1.0-4.8) k/uL Monocytes # (0-1.0) k/uL Eosinophils # (0-0.7) k/uL Basophils # (0-0.2) k/uL Sodium (137-145) mmol/L Potassium (3.5-5.1) mmol/L Chloride (98-107) mmol/L Carbon Dioxide (22-30) mmol/L Anion Gap mmol/L BUN (7-17) mg/dL Creatinine (0.52-1.04) mg/dL Est GFR (CKD-EPI)AfAm (>60 ml/min/1.73 sqM) Est GFR (CKD-EPI)NonAf (>60 ml/min/1.73 sqM) Glucose (74-99) mg/dL Calcium (8.4-10.2) mg/dL Total Bilirubin (0.2-1.3) mg/dL AST (14-36) U/L ALT (4-34) U/L Alkaline Phosphatase (38-126) U/L Total Protein (6.3-8.2) g/dL Albumin (3.5-5.0) g/dL Lipase (23-300) U/L Urine Color Urine Appearance (Clear) Urine pH (5.0-8.0) Ur Specific [place] (1.001-1.035) Urine Protein (Negative) Urine Glucose (UA) (Negative) Urine Ketones (Negative) Urine Blood (Negative) Urine Nitrite (Negative) Urine Bilirubin (Negative) Urine Urobilinogen (<2.0) mg/dL Ur Leukocyte Esterase (Negative) Urine RBC (0-5) /hpf Urine WBC (0-5) /hpf Ur Squamous Epith Cells (0-4) /hpf Urine Bacteria (None) /hpf Urine Mucus (None) /hpf Urine HCG, Qual Not Detected (Not Detectd) Disposition Clinical Impression: Flank pain, Ureteral stone with hydronephrosis Disposition: HOME SELF-CARE Condition: Stable Instructions (If sedation given, give patient instructions): Kidney Stones (ED) Additional Instructions: Please alternate taking the [place] with the Toradol every 4 hours. Use the Zofran for nausea. Take the Flomax daily. Follow-up with your doctor in 2 to 4 days to ensure improvement in your symptoms. You may need to see the urologist if your pain continues. Return for any new or worsening symptoms Prescriptions: Tamsulosin [Flomax] 0.4 mg PO DAILY #7 cap HYDROcodone/APAP 10-325MG [[place] 10-325] 1 tab PO Q6HR PRN 3 Days #12 tab PRN Reason: Pain Ketorolac [Toradol] 10 mg PO Q8HR #15 tab Ondansetron Odt [Zofran Odt] 4 mg PO Q8HR PRN #10 tab PRN Reason: Nausea Is patient prescribed a controlled substance at d/c from ED?: Yes When asked, does pt state using other controlled substances?: No If prescribed controlled substance>3 days was MAPS reviewed?: Prescribed <3 Days If opioid is for acute pain is fill amount 7 days or less?: Yes Referrals: Edith Nina DO [Primary Care Provider] - 1-2 days Gaston Donovan MD [STAFF PHYSICIAN] - 1-2 days Time of Disposition: 20:48
[2024-09-13 21:07] VITALS: BP 128/93; PULSE 98; RESP 16; TEMP 97.9
== END 2024-09-13 21:07 | disposition home or self-care (01) ==
LOC: EC 15:23
DX: N13.2 Hydronephrosis with renal and ureteral calculous obstruction (principal); Z88.2 Allergy status to sulfonamides; Z88.1 Allergy status to other antibiotic agents; Z91.018 Allergy to other foods
CPT/HCPCS: 36415; 93005; 80053; 83690; 85025; 81001; 81025; 74176; 99285; 96374; 96375 ×2; 96361; J2270; J2405; J1885

== ENCOUNTER 2025-05-30 18:44 | Emergency (ER) | payer OTHER ==
--- NOTE | 2025-05-30 18:59 | ED ---
Abdominal Pain HPI - General Source: patient, RN notes reviewed, old records reviewed Mode of arrival: ambulatory Limitations: no limitations - History of Present Illness MD Complaint: abdominal pain, flank pain (Right-sided) -: hour(s) Location: R flank Radiation: RLQ, R flank Migration to: R flank Severity: severe Severity scale (1-10): 8 Quality: stabbing Consistency: constant Improves With: nothing Worsens With: nothing Associated Symptoms: nausea Treatments Prior to Arrival: other (0) <Serafin Keating - Last Filed: 05/30/25 20:27> <Sedrick Moya - Last Filed: 06/01/25 00:44> - General Chief Complaint: Abdominal Pain Stated Complaint: right sided abdominal back pain Time Seen by Provider: 05/30/25 18:57 - History of Present Illness Initial Comments: This is a 44 female to the ER for evaluation as patient presents today for evaluation regards to flank pain history of kidney stones feels like prior kidney stones. Severe and significant right-sided flank pain. (Serafin Keating) - Related Data Home Medications Medication Instructions Recorded Confirmed ARIPiprazole [Abilify] 5 mg PO HS 08/16/19 09/13/24 traZODone HCL 200 mg PO HS 03/02/23 09/13/24 Albuterol Sulfate [Albuterol 1 - 2 puff INHALATION RT-Q4H PRN 09/13/24 09/13/24 Sulfate Hfa] DULoxetine HCL [Cymbalta] 30 mg PO HS 09/13/24 09/13/24 Dulaglutide [Trulicity] 3 mg SQ TU 09/13/24 09/13/24 HYDROcodone/APAP 7.5-325MG [Edison 1 tab PO TID 09/13/24 09/13/24 7.5-325] Multivitamins, Thera [Multivitamin 1 tab PO DAILY 09/13/24 09/13/24 (formulary)] Omeprazole [PriLOSEC] 20 mg PO HS 09/13/24 09/13/24 Tiotropium 2.5 Mcg/Puff [Spiriva 2 puff INHALATION RT-DAILY 09/13/24 09/13/24 Respimat 2.5 Mcg] Previous Rx's Medication Instructions Recorded HYDROcodone/APAP 10-325MG [Edison 1 tab PO Q6HR PRN 3 Days #12 tab 09/13/24 10-325] Ketorolac [Toradol] 10 mg PO Q8HR #15 tab 09/13/24 Ondansetron Odt [Zofran Odt] 4 mg PO Q8HR PRN #10 tab 09/13/24 Tamsulosin [Flomax] 0.4 mg PO DAILY #7 cap 09/13/24 Ketorolac [Toradol] 10 mg PO Q6HR #20 tab 05/30/25 Allergies Allergy/AdvReac Type Severity Reaction Status Date / Time banana Allergy Anaphylaxis Verified 05/30/25 18:48 coconut Allergy Anaphylaxis Verified 05/30/25 18:48 Sulfa (Sulfonamide Allergy Rash/Hives Verified 05/30/25 18:48 Antibiotics) sulfamethoxazole Allergy Rash/Hives Verified 05/30/25 18:48 [From Bactrim] trimethoprim [From Bactrim] Allergy Rash/Hives Verified 05/30/25 18:48 Review of Systems ROS Other: All systems not noted in ROS Statement are negative. <Serafin Keating - Last Filed: 05/30/25 20:27> ROS Other: All systems not noted in ROS Statement are negative. <Sedrick Moya - Last Filed: 06/01/25 00:44> ROS Statement: Those systems with pertinent positive or pertinent negative responses have been documented in the HPI. Past Medical History Past Medical History: Fibromyalgia, Pneumonia, Sleep Apnea/CPAP/BIPAP Additional Past Medical History / Comment(s): back pain, numbness & tingling (bilateral legs with cold temperatures), not using c-pap though she was dx with sleep apnea 2013-(??), prediabetes, History of Any Multi-Drug Resistant Organisms: None Reported Past Surgical History: Uterine Ablation Additional Past Surgical History / Comment(s): bilateral carpul tunnel surgery, left knee arthroscopic + repair of torn ligaments, Dec 2018: Nerve ablation lumbar spine (Dr. Dumont; in office procedure) Past Anesthesia/Blood Transfusion Reactions: No Reported Reaction Additional Past Anesthesia/Blood Transfusion Reaction / Comment(s): No blood transfusion to date Past Psychological History: Anxiety, Depression Smoking Status: Never smoker Past Alcohol Use History: Occasional Past Drug Use History: None Reported - Past Family History Mother Family Medical History: CVA/TIA, Hyperlipidemia, Hypertension Father Family Medical History: Hyperlipidemia, Hypertension Additional Family Medical History / Comment(s): at age 60 from alcoholism (organ failure) Brother(s) Family Medical History: No Reported History <CathiebubbaSerafin dudley Last Filed: 05/30/25 20:27> General Exam Limitations: no limitations General appearance: alert, in no apparent distress Head exam: Present: atraumatic, normocephalic, normal inspection Eye exam: Present: normal appearance, PERRL, EOMI. Absent: scleral icterus, conjunctival injection, periorbital swelling ENT exam: Present: normal exam, mucous membranes moist Neck exam: Present: normal inspection. Absent: tenderness, meningismus, lymphadenopathy Respiratory exam: Present: normal lung sounds bilaterally. Absent: respiratory distress, wheezes, rales, rhonchi, stridor Cardiovascular Exam: Present: regular rate, normal rhythm, normal heart sounds. Absent: systolic murmur, diastolic murmur, rubs, gallop, clicks GI/Abdominal exam: Present: soft, normal bowel sounds. Absent: distended, tenderness, guarding, rebound, rigid Extremities exam: Present: normal inspection, full ROM, normal capillary refill. Absent: tenderness, pedal edema, joint swelling, calf tenderness Back exam: Present: normal inspection Neurological exam: Present: alert, oriented X3, CN II-XII intact Psychiatric exam: Present: normal affect, normal mood Skin exam: Present: warm, dry, intact, normal color. Absent: rash <Serafin Keating - Last Filed: 05/30/25 20:27> Course <Serafin Keating - Last Filed: 05/30/25 20:27> Vital Signs 05/30/25 05/30/25 05/30/25 18:45 20:36 21:35 Temperature 98.2 F 98.7 F Pulse Rate 80 93 86 Respiratory 20 18 16 Rate Blood Pressure 150/101 131/83 130/88 O2 Sat by Pulse 96 95 98 Oximetry 05/30/25 23:19 Temperature 98.3 F Pulse Rate 95 Respiratory 16 Rate Blood Pressure 131/81 O2 Sat by Pulse 96 Oximetry - Reevaluation(s) Reevaluation #1: 05/30/25 20:28 Medical records reviewed (Serafin Keating) Reevaluation #2: 05/30/25 20:28 Patient symptoms improved (Serafin Keating) Reevaluation #3: 05/30/25 20:28 Patient informed of results questions answered (Serafin Keating) Reevaluation #4: Was pt. sent in by a medical professional or institution ([facility], PRODUCTION SUPPORT DEVELOPER, urgent care, hospital, or penitentiary...) When possible be specific @ -no Did you speak to anyone other than the patient for history (EMS, parent, family, police, friend...)? What history was obtained from this source @ -no Did you review nursing and triage notes (agree or disagree)? Why? @ -agree Are old charts reviewed (outside hosp., previous admission, EMS record, old EKG, old radiological studies, urgent care reports/EKG's, penitentiary records)? Report findings @ -yes Differential Diagnosis (chest pain, altered mental status, abdominal pain women, abdominal pain men, vaginal bleeding, weakness, fever, dyspnea, syncope, headache, dizziness, GI bleed, back pain, seizure, CVA, palpatations, mental health, musculoskeletal)? @ -prior EKG interpreted by me (3pts min.). @ -yes X-rays interpreted by me (1pt min.). @ -yes negative for acute disease CT interpreted by me (1pt min.). @ -no U/S interpreted by me (1pt. min.). @ -no What testing was considered but not performed or refused? (CT, X-rays, U/S, labs)? Why? @ -none What meds were considered but not given or refused? Why? @ -none Did you discuss the management of the patient with other professionals (professionals i.e. [facility] [place], PRODUCTION SUPPORT DEVELOPER, lab, RT, psych nurse, licensed social worker, contracting engineer, teacher, correction officer reformatory, disability case manager)? Give summary @ -no Was smoking cessation discussed for >3mins.? @ -no Was critical care preformed (if so, how long)? @ -no Were there social determinants of health that impacted care today? How? (Homele ssness, low income, unemployed, alcoholism, drug addiction, transportation, low edu. Level, literacy, decrease access to med. care, alf, rehab)? @ -none Was there de-escalation of care discussed even if they declined (Discuss DNR or withdrawal of care, Hospice)? DNR status @ -no What co-morbidities impacted this encounter? (DM, HTN, Smoking, COPD, CAD, Cancer, CVA, ARF, Chemo, Hep., AIDS, mental health diagnosis, sleep apnea, morbid obesity)? @ -none Was patient admitted / discharged? Hospital course, mention meds given and route, prescriptions, significant lab abnormalities, going to OR and other pertinent info. @ - Undiagnosed new problem with uncertain prognosis? @ -no Drug Therapy requiring intensive monitoring for toxicity (Heparin, Nitro, Insulin, Cardizem)? @ -no Were any procedures done? @ -no Diagnosis/symptom? @ - Acute, or Chronic, or Acute on Chronic? @ -Acute Uncomplicated (without systemic symptoms) or Complicated (systemic symptoms)? @ -Complicated Side effects of treatment? @ -no Exacerbation, Progression, or Severe Exacerbation? @ -exacerbation Poses a threat to life or bodily function? How? (Chest pain, [place], [place], pneumonia, PE, COPD, DKA, ARF, appy, cholecystitis, CVA, Diverticulitis, Homicidal, Suicidal, threat to staff... and all critical care pts) @ -yes (Serafin Keating) Reevaluation #5: Differential Abdominal Pain Women: Appendicitis, Cholecystitis, diverticulosis, ischemic bowel, pancreatitis, h epatitis, UTI, gastroenteritis, AAA, incarcerated hernia, bowel obstruction, constipation, inflammatory bowel, hepatitis, peptic ulcer disease, splenic infarction, perforated viscus, vulvitis, ovarian torsion, PID, kidney stone, placenta abruption, this is not meant to be an all-inclusive list (Serafin Keating) Medical Decision Making - Lab Data Result diagrams: 05/30/25 19:34 05/30/25 19:34 - Radiology Data Radiology results: report reviewed (CT abdomen pelvis positive kidney stone), image reviewed <Serafin Keating - Last Filed: 05/30/25 20:27> - Lab Data Result diagrams: 05/30/25 19:34 05/30/25 19:34 <Sedrick Moya - Last Filed: 06/01/25 00:44> - Medical Decision Making 44 female with kidney stone kidney stone pain. Patient's pain is controlled feels improved and patient can be discharged home (Serafin Keating) Was pt. sent in by a medical professional or institution ([facility], PRODUCTION SUPPORT DEVELOPER, urgent care, hospital, or penitentiary...) When possible be specific @ -No Did you speak to anyone other than the patient for history (EMS, parent, family, police, friend...)? What history was obtained from this source @ -No Did you review nursing and triage notes (agree or disagree)? Why? @ -I reviewed and agree with nursing and triage notes Were old charts reviewed (outside hosp., previous admission, EMS record, old EKG, old radiological studies, urgent care reports/EKG's, penitentiary records)? Report findings @ -No old charts were reviewed Differential Abdominal Pain Women: Appendicitis, Cholecystitis, diverticulosis, ischemic bowel, pancreatitis, hepatitis, UTI, gastroenteritis, AAA, incarcerated hernia, bowel obstruction, constipation, inflammatory bowel, hepatitis, peptic ulcer disease, splenic infarction, perforated viscus, vulvitis, ovarian torsion, PID, kidney stone, placenta abruption, this is not meant to be an all-inclusive list EKG interpreted by me (3pts min.). @ -As above X-rays interpreted by me (1pt min.). @ -None done CT interpreted by me (1pt min.). @ -CT showing right-sided hydronephrosis and distal obstructing calculus. U/S interpreted by me (1pt. min.). @ -None done What testing was considered but not performed or refused? (CT, X-rays, U/S, labs)? Why? @ -None What meds were considered but not given or refused? Why? @ -None Did you discuss the management of the patient with other professionals (professionals i.e. [facility] [place], PRODUCTION SUPPORT DEVELOPER, lab, RT, psych nurse, licensed social worker, contracting engineer, teacher, correction officer reformatory, disability case manager)? Give summary @ -No Was smoking cessation discussed for >3mins.? @ -No Was critical care preformed (if so, how long)? @ -No Were there social determinants of health that impacted care today? How? (Homelessness, low income, unemployed, alcoholism, drug addiction, transportation, low edu. Level, literacy, decrease access to med. care, alf, rehab)? @ -No Was there de-escalation of care discussed even if they declined (Discuss DNR or withdrawal of care, Hospice)? DNR status @ -No What co-morbidities impacted this encounter? (DM, HTN, Smoking, COPD, CAD, Cancer, CVA, ARF, Chemo, Hep., AIDS, mental health diagnosis, sleep apnea, morbid obesity)? @ -None Was patient admitted / discharged? Hospital course, mention meds given and route, prescriptions, significant lab abnormalities, going to OR and other pertinent info. @ -Patient reevaluated after shift change and is feeling better with improvement in pain. Stable for discharge with urology follow-up. Undiagnosed new problem with uncertain prognosis? @ -No Drug Therapy requiring intensive monitoring for toxicity (Heparin, Nitro, Insulin, Cardizem)? @ -No Were any procedures done? @ -No Diagnosis/symptom? @Renal colic, obstructing kidney stone Acute, or Chronic, or Acute on Chronic? @ -Acute Uncomplicated (without systemic symptoms) or Complicated (systemic symptoms)? @ -Default Side effects of treatment? @ -No Exacerbation, Progression, or Severe Exacerbation? @ -No Poses a threat to life or bodily function? How? (Chest pain, [place], [place], pneumonia, PE, COPD, DKA, ARF, appy, cholecystitis, CVA, Diverticulitis, Homicidal, Suicidal, threat to staff... and all critical care pts) @ -No (Sedrick Moya) - Lab Data Lab Results 05/30/25 05/30/25 05/30/25 Range/Units 19:34 19:34 19:34 WBC 13.56 H (4.50-10.00) 10*3/uL RBC 5.02 (4.10-5.20) 10*6/uL Hgb 14.9 (12.0-15.0) g/dL Hct 44.5 (37.2-46.3) % MCV 88.6 (80.0-97.0) fL MCH 29.7 (27.0-32.0) pg MCHC 33.5 (32.0-37.0) g/dL Plt Count 216 (140-440) 10*3/uL MPV 12.1 (9.5-12.2) fL Immature Gran % (Auto) 0.4 % Neutrophils % 72.6 % Lymphocytes % 16.9 % Monocytes % 7.0 % Eosinophils % 2.2 % Basophils % 0.9 % Immature Gran # 0.06 H (0.00-0.04) 10*3/uL Neutrophils # 9.84 H (1.80-7.70) 10*3/uL Lymphocytes # 2.29 (0.90-5.00) 10*3/uL Monocytes # 0.95 (0.20-1.00) 10*3/uL Eosinophils # 0.30 (0.04-0.35) 10*3/uL Basophils # 0.12 H (0.00-0.10) 10*3/uL Sodium 136 L (137-145) mmol/L Potassium 4.4 (3.5-5.1) mmol/L Chloride 102 (98-107) mmol/L Carbon Dioxide 25 (22-30) mmol/L Anion Gap 9 mmol/L BUN 18 H (7-17) mg/dL Creatinine 0.84 (0.52-1.04) mg/dL Est GFR (CKD-EPI)AfAm >90 (>60 ml/min/1.73 sqM) Est GFR (CKD-EPI)NonAf 84 (>60 ml/min/1.73 sqM) Glucose 157 H (74-99) mg/dL Plasma Lactic Acid Levar (0.7-2.0) mmol/L Calcium 9.5 (8.4-10.2) mg/dL Total Bilirubin 0.4 (0.2-1.3) mg/dL AST 22 (14-36) U/L ALT 22 (4-34) U/L Alkaline Phosphatase 82 (38-126) U/L Total Protein 7.5 (6.3-8.2) g/dL Albumin 4.5 (3.5-5.0) g/dL Amylase 56 (30-110) U/L Lipase 118 (23-300) U/L Urine Color Yellow Urine Appearance Cloudy H (Clear) Urine pH 5.0 (5.0-8.0) Ur Specific Cosby 1.034 (1.001-1.035) Urine Protein 1+ H (Negative) Urine Glucose (UA) 1+ H (Negative) Urine Ketones 1+ H (Negative) Urine Blood Moderate H (Negative) Urine Nitrite Negative (Negative) Urine Bilirubin Negative (Negative) Urine Urobilinogen 2.0 (<2.0) mg/dL Ur Leukocyte Esterase Negative (Negative) Urine RBC 144 H (0-5) /hpf Urine WBC 17 H (0-5) /hpf Ur Squamous Epith Cells 15 H (0-4) /hpf Urine Bacteria Rare H (None) /hpf Urine Mucus Occasional H (None) /hpf 05/30/25 Range/Units 19:34 WBC (4.50-10.00) 10*3/uL RBC (4.10-5.20) 10*6/uL Hgb (12.0-15.0) g/dL Hct (37.2-46.3) % MCV (80.0-97.0) fL MCH (27.0-32.0) pg MCHC (32.0-37.0) g/dL Plt Count (140-440) 10*3/uL MPV (9.5-12.2) fL Immature Gran % (Auto) % Neutrophils % % Lymphocytes % % Monocytes % % Eosinophils % % Basophils % % Immature Gran # (0.00-0.04) 10*3/uL Neutrophils # (1.80-7.70) 10*3/uL Lymphocytes # (0.90-5.00) 10*3/uL Monocytes # (0.20-1.00) 10*3/uL Eosinophils # (0.04-0.35) 10*3/uL Basophils # (0.00-0.10) 10*3/uL Sodium (137-145) mmol/L Potassium (3.5-5.1) mmol/L Chloride (98-107) mmol/L Carbon Dioxide (22-30) mmol/L Anion Gap mmol/L BUN (7-17) mg/dL Creatinine (0.52-1.04) mg/dL Est GFR (CKD-EPI)AfAm (>60 ml/min/1.73 sqM) Est GFR (CKD-EPI)NonAf (>60 ml/min/1.73 sqM) Glucose (74-99) mg/dL Plasma Lactic Acid Levar 1.2 (0.7-2.0) mmol/L Calcium (8.4-10.2) mg/dL Total Bilirubin (0.2-1.3) mg/dL AST (14-36) U/L ALT (4-34) U/L Alkaline Phosphatase (38-126) U/L Total Protein (6.3-8.2) g/dL Albumin (3.5-5.0) g/dL Amylase (30-110) U/L Lipase (23-300) U/L Urine Color Urine Appearance (Clear) Urine pH (5.0-8.0) Ur Specific Cosby (1.001-1.035) Urine Protein (Negative) Urine Glucose (UA) (Negative) Urine Ketones (Negative) Urine Blood (Negative) Urine Nitrite (Negative) Urine Bilirubin (Negative) Urine Urobilinogen (<2.0) mg/dL Ur Leukocyte Esterase (Negative) Urine RBC (0-5) /hpf Urine WBC (0-5) /hpf Ur Squamous Epith Cells (0-4) /hpf Urine Bacteria (None) /hpf Urine Mucus (None) /hpf Disposition Time of Disposition: 20:45 <Serafin Keating - Last Filed: 05/30/25 20:27> Is patient prescribed a controlled substance at d/c from ED?: No <Sedrick Moya - Last Filed: 06/01/25 00:44> Clinical Impression: Abdominal pain, Kidney stone on right side Disposition: HOME SELF-CARE Instructions (If sedation given, give patient instructions): Kidney Stones (ED) Prescriptions: Ketorolac [Toradol] 10 mg PO Q6HR #20 tab Referrals: Vivi Mccoy DO [Primary Care Provider] - 1-2 days Gaston Donovan MD [STAFF PHYSICIAN] - 1-2 days
[2025-05-30 19:45] LABS: Basophils # (A) 0.12 10*3/uL (0.00-0.10); Basophils % (A) 0.9 %; Eosinophils # (A) 0.30 10*3/uL (0.04-0.35); Eosinophils % (A) 2.2 %; HCT 44.5 % (37.2-46.3); HGB 14.9 g/dL (12.0-15.0); Lymphocytes # (A) 2.29 10*3/uL (0.90-5.00); Lymphocytes % (A) 16.9 %; MCH 29.7 pg (27.0-32.0); MCHC 33.5 g/dL (32.0-37.0); MCV 88.6 fL (80.0-97.0); Monocytes # (A) 0.95 10*3/uL (0.20-1.00); Monocytes % (A) 7.0 %; Neutrophils # (A) 9.84 10*3/uL (1.80-7.70); Neutrophils % (A) 72.6 %; Platelet Count 216 10*3/uL (140-440); RBC 5.02 10*6/uL (4.10-5.20); RDW 13.2 % (11.5-14.5); WBC 13.56 10*3/uL (4.50-10.00)
[2025-05-30] MEDS: KETOROLAC 15 MG/ML 1 ML VIAL IVP STA (19:54)
[2025-05-30] MEDS: SODIUM CHLORIDE 0.9% 1,000 ML IV ONE (19:54)
[2025-05-30 19:57] LABS: Bacteria,Urine Rare /hpf; Bilirubin,Urine Negative (Negative); Blood,Urine Moderate (Negative); Color,Urine Yellow; Glucose,Urine (UA) 1+ (Negative); Ketones,Urine 1+ (Negative); Leukocyte Esterase,Urine Negative (Negative); Mucus,Urine Occasional /hpf; Nitrite,Urine Negative (Negative); PH, Urine 5.0 (5.0-8.0); Protein,Urine 1+ (Negative); RBC,Urine 144 /hpf (0-5); Specific Gravity,Urine 1.034 (1.001-1.035); Squamous Epithelial Cell,Urine 15 /hpf (0-4); Urobilinogen,Urine 2.0 mg/dL (<2.0); WBC,Urine 17 /hpf (0-5)
[2025-05-30] MEDS: HYDROmorphone 1 MG/ML 1 ML SYRINGE IVP STA ×2 (19:57→22:31)
[2025-05-30 20:00] LABS: ALT 22 U/L (4-34); AST 22 U/L (14-36); African American GFR (CKD) >90 (>60 ml/min/1.73 sqM); Albumin 4.5 g/dL (3.5-5.0); Alkaline Phosphatase 82 U/L (38-126); Amylase 56 U/L (30-110); Anion Gap 9 mmol/L; Blood Urea Nitrogen 18 mg/dL (7-17); Calcium 9.5 mg/dL (8.4-10.2); Carbon Dioxide 25 mmol/L (22-30); Chloride 102 mmol/L (98-107); Glucose 157 mg/dL (74-99); Lipase 118 U/L (23-300); Non-African American GFR(CKD) 84 (>60 ml/min/1.73 sqM); Potassium 4.4 mmol/L (3.5-5.1); Sodium 136 mmol/L (137-145); Total Protein 7.5 g/dL (6.3-8.2)
[2025-05-30] MEDS: ONDANSETRON 4 MG/2 ML VIAL IVP STA (20:01)
--- NOTE | 2025-05-30 21:18 | CT ---
EXAMINATION TYPE: CT abdomen pelvis wo con DATE OF EXAM: 05/30/2025 8:13 PM COMPARISON: CT abdomen pelvis most recent from CLINICAL INDICATION: Female, 44 years old with history of abdominal pain; right sided abdominal pain not relieved by home norcos. Pt states uncomfortable to urinate TECHNIQUE: Axial CT abdomen pelvis wo con;Sagittal and coronal reformats were created on a separate workstation. Contrast used: mL of , (none if empty) Oral contrast used: without Oral Contrast (none if empty) CT DLP: 1452.4 mGycm, Automated exposure control for dose reduction was used. FINDINGS: LOWER CHEST: Unremarkable ABDOMEN LIVER: Unremarkable GALLBLADDER AND BILE DUCTS: Unremarkable. PANCREAS: Unremarkable. SPLEEN: Small splenules. ADRENAL GLANDS: Unremarkable. KIDNEYS AND URETERS: There is moderate to severe right hydroureteronephrosis with an obstructive 5 mm calculus in the distal right ureter. There are a few additional sub-5 mm nonobstructive calculi in the right kidney. The right kidney is enlarged and has edematous appearance with mild perinephric fa t stranding. The left kidney and ureter are unremarkable. PELVIS BLADDER: No evidence for wall thickening or mass given limitations of exam. REPRODUCTIVE: Left adnexal cystic focus measuring up to 3.0 cm may relate to follicular changes versu s adnexal cyst. ABDOMEN & PELVIS STOMACH AND BOWEL: Stomach is grossly unremarkable. Small bowel is of normal caliber. No evidence of bowel obstruction. PERITONEUM/RETROPERITONEUM: No evidence of pneumoperitoneum or free fluid. VASCULATURE: No evidence of aortic aneurysm. MUSCULOSKELETAL: No acute osseous abnormalities LYMPH NODES: No gross evidence for lymphadenopathy. SOFT TISSUE/ABDOMINAL WALL: Unremarkable IMPRESSION: 1. Moderate to severe right hydroureteronephrosis secondary to an obstructive 5 mm calculus in the d istal right ureter. Additional sub-5 mm nonobstructive right renal calculi are seen. 2. Left adnexal cyst measuring up to 3.0 cm. [facility], , 05/30/2025 9:16 PM
[2025-05-30 21:36] VITALS: RESP 16
[2025-05-30] MEDS: traMADol 50 MG STARTER PACK TAB BTL PO STA (23:09)
[2025-05-30] MEDS: ONDANSETRON 4 MG ODT STARTER PACK TAB BTL PO STA (23:09)
[2025-05-30] MEDS: ACET/COD 300 MG/30 MG STARTER PACK TAB BTL PO STA (23:09)
[2025-05-30 23:22] VITALS: BP 131/81; PULSE 95; TEMP 98.3
== END 2025-05-30 23:17 | disposition home or self-care (01) ==
LOC: EC 18:44
DX: N13.2 Hydronephrosis with renal and ureteral calculous obstruction (principal); Z88.1 Allergy status to other antibiotic agents; Z88.2 Allergy status to sulfonamides; Z91.018 Allergy to other foods; Z88.8 Allergy status to other drugs, medicaments and biological substances
CPT/HCPCS: 36415; 80053; 82150; 83605; 83690; 85025; 81001; 74176; 99284; 96365; 96375; 96376; 96361; J2405; J0696; J1171; J1885; S0119